=== PATIENT | female | born 1940 | race Caucasian/White ===

== ENCOUNTER 2017-07-12 14:10 | Emergency (ER) | payer MEDICARE, BC ==
[~2017-07-12] VITALS: Ht 160 cm; Wt 67.0 kg
[~2017-07-12 14:10] MED LIST: ALBU18HF2 IH; CALC-212 PO; CALC-793 PO; CYAN100T PO; ESTR1TAB19 PO; FLUT1DIS4 INH; IBUP200C74 PO; LORA-512 PO; OMEG1CAP46 PO; PRAS25CA7 PO; PRED5TAB PO; PROG100C6 PO; [UNRECOGNIZED DRUG - CODE] PO
[2017-07-12] MEDS ORDERED: methylPREDNISolone sod succ 125mg/2ml vial IV ONE (14:30)
[2017-07-12] MEDS ORDERED: ipratropium/albuterol 3ml nebule NEB ONE (14:30)
[2017-07-12 14:41] LABS: BASOPHILS % (AUTO) 0.3 % (0-1); EOSINOPHILS # (AUTO) 0.5 X10'3 (0-0.9); EOSINOPHILS % (AUTO) 3.7 % (0-6); HEMATOCRIT 45.9 % (35.0-45.0); HEMOGLOBIN 15.3 g/dl (12.0-16.0); LYMPHOCYTES # (AUTO) 2.5 X10'3 (1.1-4.8); LYMPHOCYTES % (AUTO) 18.1 % (21-51); MEAN CORPUSCULAR HEMOGLOBIN 31.9 PG (27.0-31.0); MEAN CORPUSCULAR HGB CONC 33.4 % (33.0-36.5); MEAN CORPUSCULAR VOLUME 95.7 FL (78-98); MEAN PLATELET VOLUME 7.9 FL (7.4-10.4); MONOCYTES % (AUTO) 7.5 % (2-12); NEUTROPHILS # (AUTO) 9.8 X10'3 (1.8-7.7); NEUTROPHILS % (AUTO) 70.4 % (42-75); PLATELET COUNT 260 X10'3 (140-440); RED CELL DISTRIBUTION WIDTH 12.6 % (11.5-14.5); WHITE BLOOD COUNT 13.9 X10'3 (4.5-11.0)
[2017-07-12 14:51] LABS: INR 0.9 INR; PARTIAL THROMBOPLASTIN TIME 26 SECONDS (22-32); PROTHROMBIN TIME 9.7 SECONDS (9.0-12.0)
[2017-07-12 14:54] LABS: ALANINE AMINOTRANSFERASE 24 U/L (12-78); ALBUMIN 3.9 G/DL (3.4-5.0); ALKALINE PHOSPHATASE 92 IU/L (46-116); ANION GAP 10 (8-16); ASPARTATE AMINO TRANSFERASE 16 U/L (10-37); BILIRUBIN,TOTAL 0.5 MG/DL (0.1-1.0); BLOOD UREA NITROGEN 15 MG/DL (7-18); BUN/CREATININE RATIO 17.4 (6.6-38.0); CALCIUM 9.2 MG/DL (8.5-10.1); CHLORIDE 102 MMOL/L (99-107); CREATININE 0.86 MG/DL (0.40-0.90); GLUCOSE 109 MG/DL (70-104); POTASSIUM 3.8 MMOL/L (3.5-5.1); SODIUM 139 MMOL/L (135-145); TOTAL CARBON DIOXIDE 27.3 MMOL/L (24-32); TOTAL PROTEIN 7.8 G/DL (6.4-8.2); eGFR 64 ML/MIN
[2017-07-12] MEDS ORDERED: AZIT-63 PO (15:16)
[2017-07-12 15:38] VITALS: BP 134/77
== END 2017-07-12 15:42 | disposition home or self-care (01) ==
LOC: ER 14:11
DX: J45.901 Unspecified asthma with (acute) exacerbation (principal); Z90.49 Acquired absence of other specified parts of digestive tract; Z90.710 Acquired absence of both cervix and uterus; Z88.2 Allergy status to sulfonamides; Z88.1 Allergy status to other antibiotic agents; Z79.899 Other long term (current) drug therapy
CPT/HCPCS: 36415; 71045; 80053; 85025; 85610; 85730; 93005; 94640; 94760; 96374; 99285; J2930; 96372

== ENCOUNTER 2017-10-30 03:26 | Inpatient (IN) | payer MEDICARE, BC ==
[~2017-10-30] VITALS: Ht 160 cm; Wt 68.0 kg
[2017-10-30] MEDS ORDERED: albuterol 2.5 MG/3 ML nebule CONTNEB PRN (03:30)
[2017-10-30] MEDS ORDERED: methylPREDNISolone sod succ 125mg/2ml vial IV ONE (03:30)
[2017-10-30] MEDS ORDERED: LORazepam 2 mg/ml vial IV ONE (03:30)
[2017-10-30 03:39] LABS: BASOPHILS % (AUTO) 0.4 % (0-1); EOSINOPHILS # (AUTO) 0.6 X10'3 (0-0.9); HEMATOCRIT 41.7 % (35.0-45.0); HEMOGLOBIN 14.6 g/dl (12.0-16.0); LYMPHOCYTES # (AUTO) 3.9 X10'3 (1.1-4.8); LYMPHOCYTES % (AUTO) 36.8 % (21-51); MEAN CORPUSCULAR HGB CONC 34.9 % (33.0-36.5); MEAN CORPUSCULAR VOLUME 94.5 FL (78-98); MONOCYTES # (AUTO) 0.7 X10'3 (0-0.9); MONOCYTES % (AUTO) 6.3 % (2-12); NEUTROPHILS # (AUTO) 5.4 X10'3 (1.8-7.7); NEUTROPHILS % (AUTO) 50.5 % (42-75); PLATELET COUNT 230 X10'3 (140-440); RED BLOOD COUNT 4.41 X10'6 (4.20-5.60); RED CELL DISTRIBUTION WIDTH 13.1 % (11.5-14.5); WHITE BLOOD COUNT 10.6 X10'3 (4.5-11.0)
[2017-10-30 03:46] LABS: ABG HCO3 23.8 mmol/L (22.0-26.0); ABG OXYGEN SATURATION 95.4 % (95-98); ABG PCO2 (T) 52.8 mmHg (32.0-45.0); ABG PH (T) 7.269 (7.350-7.450); ABG PO2 (T) 87.4 mmHg (83-108); ALLEN'S TEST Positive; FCOHb 0.5 % (0.5-1.5); FMetHb 0.1 % (0.3-1.12); FO2Hb 94.8 % (94-100); PATIENT TEMPERATURE 36.5
[2017-10-30] MEDS ORDERED: azithromycin/NS 500mg/250ml 250 ML IV ONE (03:55)
[2017-10-30 04:00] LABS: ALANINE AMINOTRANSFERASE 23 U/L (12-78); ALBUMIN 3.4 G/DL (3.4-5.0); ALKALINE PHOSPHATASE 73 IU/L (46-116); ANION GAP 8 (8-16); ASPARTATE AMINO TRANSFERASE 26 U/L (10-37); BILIRUBIN,TOTAL 0.4 MG/DL (0.1-1.0); BLOOD UREA NITROGEN 14 MG/DL (7-18); BUN/CREATININE RATIO 15.6 (6.6-38.0); CALCIUM 8.5 MG/DL (8.5-10.1); CHLORIDE 107 MMOL/L (99-107); GLUCOSE 165 MG/DL (70-104); POTASSIUM 3.9 MMOL/L (3.5-5.1); SODIUM 142 MMOL/L (135-145); TOTAL CARBON DIOXIDE 27.1 MMOL/L (24-32); TOTAL PROTEIN 6.9 G/DL (6.4-8.2); eGFR 61 ML/MIN
[2017-10-30] MEDS ORDERED: acetaminophen 325mg tablet PO PRN ×2 (05:05)
[2017-10-30] MEDS ORDERED: magnesium hydroxide 30ml (MOM) UD suspension PO PRN (05:05)
[2017-10-30] MEDS ORDERED: ondansetron/PF 4mg/2ml inj IV PRN (05:05)
[2017-10-30] MEDS ORDERED: mag hydrox/Alum hydrox/simeth 30ml oral suspension PO PRN (05:05)
[2017-10-30] MEDS ORDERED: ipratropium/albuterol 3ml nebule NEB PRN (05:10)
[2017-10-30 07:20] VITALS: BP 136/55
[2017-10-30] MEDS ORDERED: enoxaparin 40mg/0.4ml syringe SUBCUT SCH (08:00)
[2017-10-30] MEDS ORDERED: methylPREDNISolone sod succ 125mg/2ml vial IV SCH (08:00)
[2017-10-30 09:00] VITALS: BP 133/58
[2017-10-30] MEDS ORDERED: ASPI81TA52 PO (10:21)
[2017-10-30] MEDS ORDERED: BUDE0.5A11 IH (10:26)
[2017-10-30] MEDS ORDERED: FLUT16SP2 BOTHNARES (10:26)
[2017-10-30] MEDS ORDERED: AZEL137S4 BOTHNARES (10:27)
[2017-10-30] MEDS ORDERED: CETI10CA PO (10:27)
[2017-10-30 11:00] VITALS: BP 131/53
[2017-10-30 11:35] LABS: ABG BASE EXCESS -1.3 mmol/L (-2.0-3.0); ABG HCO3 23.1 mmol/L (22.0-26.0); ABG OXYGEN SATURATION 95.3 % (95-98); ABG PH (T) 7.402 (7.350-7.450); ABG PO2 (T) 73.7 mmHg (83-108); ALLEN'S TEST Positive; FCOHb 0.3 % (0.5-1.5); FMetHb 0.2 % (0.3-1.12); FO2Hb 94.8 % (94-100); TOTAL HEMOGLOBIN 14.5 G/dl (12.0-16.0)
[2017-10-30 13:00] VITALS: BP 129/52
[2017-10-30] MEDS ORDERED: FAMO-128 PO (13:04)
[2017-10-30] MEDS ORDERED: PRED10TA23 PO (13:04)
[2017-10-31] MEDS ORDERED: azithromycin 250mg tablet PO SCH (08:00)
== END 2017-10-30 14:22 | disposition home or self-care (01) | DRG 189 ==
LOC: ER 03:27 → ED HOLD 05:05 → PCU 3S 07:17
PROVIDERS: ADMIT Internal Medicine; ATTEND Internal Medicine
PROC: 5A09357 Assistance with Respiratory Ventilation, Less than 24 Consecutive Hours, Continuous Positive Airway Pressure (ICD-10-PCS; principal; 2017-10-30)
DX: J96.01 Acute respiratory failure with hypoxia (principal); E87.2 Acidosis; J45.901 Unspecified asthma with (acute) exacerbation; J96.02 Acute respiratory failure with hypercapnia; R73.9 Hyperglycemia, unspecified; J44.9 Chronic obstructive pulmonary disease, unspecified; I10 Essential (primary) hypertension; Z77.098 Contact with and (suspected) exposure to other hazardous, chiefly nonmedicinal, chemicals; Z90.710 Acquired absence of both cervix and uterus; Z90.49 Acquired absence of other specified parts of digestive tract; Z79.899 Other long term (current) drug therapy; Z88.2 Allergy status to sulfonamides; Z88.1 Allergy status to other antibiotic agents; Z82.5 Family history of asthma and other chronic lower respiratory diseases; Z82.49 Family history of ischemic heart disease and other diseases of the circulatory system
CPT/HCPCS: 36415; 36600; 71045; 80053; 82803; 83605; 83735; 83880; 84484; 85018; 85025; 87040; 87070; 93005; 94660; 94760; J0456; J1650; J2060; J2930

== ENCOUNTER 2018-06-15 06:12 | Inpatient (IN) | payer MEDICARE, BC ==
[~2018-06-15] VITALS: Ht 160 cm; Wt 63.0 kg
[~2018-06-15 06:12] MED LIST changes: +ASPI81TA52 PO; +AZEL137S4 BOTHNARES; +BUDE0.5A11 IH; -CALC-212 PO; +CETI10CA PO; +FAMO-128 PO; +FLUT16SP2 BOTHNARES; -IBUP200C74 PO; -LORA-512 PO; -PRAS25CA7 PO; -PRED5TAB PO
[2018-06-15 06:43] LABS: BASOPHILS # (AUTO) 0.1 X10'3 (0-0.2); BASOPHILS % (AUTO) 0.4 % (0-1); EOSINOPHILS # (AUTO) 0.4 X10'3 (0-0.9); EOSINOPHILS % (AUTO) 2.6 % (0-6); HEMATOCRIT 44.9 % (35.0-45.0); HEMOGLOBIN 15.1 g/dl (12.0-16.0); LYMPHOCYTES # (AUTO) 1.6 X10'3 (1.1-4.8); LYMPHOCYTES % (AUTO) 10.6 % (21-51); MEAN CORPUSCULAR HEMOGLOBIN 32.3 PG (27.0-31.0); MEAN CORPUSCULAR HGB CONC 33.6 % (33.0-36.5); MEAN PLATELET VOLUME 8.2 FL (7.4-10.4); MONOCYTES # (AUTO) 0.6 X10'3 (0-0.9); MONOCYTES % (AUTO) 4.2 % (2-12); NEUTROPHILS # (AUTO) 12.1 X10'3 (1.8-7.7); NEUTROPHILS % (AUTO) 82.2 % (42-75); PLATELET COUNT 294 X10'3 (140-440); RED BLOOD COUNT 4.68 X10'6 (4.20-5.60); RED CELL DISTRIBUTION WIDTH 12.4 % (11.5-14.5); WHITE BLOOD COUNT 14.7 X10'3 (4.5-11.0)
[2018-06-15] MEDS ORDERED: ipratropium/albuterol 3ml nebule NEB PRN (06:45)
[2018-06-15 06:59] LABS: PARTIAL THROMBOPLASTIN TIME 27 SECONDS (22-32); PROTHROMBIN TIME 9.9 SECONDS (9.0-12.0)
[2018-06-15 07:02] LABS: ALANINE AMINOTRANSFERASE 44 U/L (12-78); ALBUMIN 3.5 G/DL (3.4-5.0); ALKALINE PHOSPHATASE 79 IU/L (46-116); ANION GAP 9 (8-16); ASPARTATE AMINO TRANSFERASE 29 U/L (10-37); BILIRUBIN,TOTAL 0.3 MG/DL (0.1-1.0); BLOOD UREA NITROGEN 11 MG/DL (7-18); BUN/CREATININE RATIO 12.5 (6.6-38.0); CALCIUM 8.4 MG/DL (8.5-10.1); CHLORIDE 103 MMOL/L (99-107); CREATININE 0.88 MG/DL (0.40-0.90); GLUCOSE 174 MG/DL (70-104); POTASSIUM 3.5 MMOL/L (3.5-5.1); SODIUM 141 MMOL/L (135-145); TOTAL CARBON DIOXIDE 29.2 MMOL/L (24-32); eGFR 62 ML/MIN
[2018-06-15] MEDS ORDERED: ondansetron/PF 4mg/2ml inj IV ONE (07:35)
[2018-06-15] MEDS ORDERED: albuterol 2.5 MG/3 ML nebule NEB ONE (07:45)
[2018-06-15] MEDS ORDERED: methylPREDNISolone sod succ 125mg/2ml vial IV ONE (07:45)
[2018-06-15] MEDS ORDERED: albuterol 2.5 MG/3 ML nebule ONE (07:57)
[2018-06-15] MEDS ORDERED: potassium Cl 40MEQ/NS 500ml 500 ML IV PRN ×2 (08:55)
[2018-06-15] MEDS ORDERED: acetaminophen 325mg tablet PO PRN (08:55)
[2018-06-15] MEDS ORDERED: magnesium Cl slow-release 64mg tablet PO PRN (08:55)
[2018-06-15] MEDS ORDERED: magnesium 4gm in 100ml NS 100 ML IV PRN (08:55)
[2018-06-15] MEDS ORDERED: potassium Cl 20 mEq SR tablet PO PRN ×2 (08:55)
[2018-06-15] MEDS ORDERED: magnesium hydroxide 30ml (MOM) UD suspension PO PRN (08:55)
[2018-06-15] MEDS ORDERED: ondansetron/PF 4mg/2ml inj IV PRN (08:55)
[2018-06-15] MEDS ORDERED: mag hydrox/Alum hydrox/simeth 30ml oral suspension PO PRN (08:55)
[2018-06-15] MEDS ORDERED: albuterol 2.5 MG/3 ML nebule NEB PRN (09:15)
[2018-06-15 09:32] LABS: CLARITY,URINE CLEAR (Clear); COLOR,URINE YELLOW (Yellow); GLUCOSE, URINE NEGATIVE (Neg); KETONES,URINE 15 mg/dl (Neg); LEUKOCYTE ESTERASE ,URINE NEGATIVE (Neg); NITRITES, URINE NEGATIVE (Neg); OCCULT BLOOD,URINE MODERATE (Neg); PH,URINE 5.5 (4.8-8.0); PROTEIN,URINE TRACE mg/dl (Neg); UROBILINOGEN,URINE 0.2 E.U/dL (0.2-1.0)
[2018-06-15 09:38] LABS: BACTERIA,URINE FEW /HPF (Neg); MUCUS STRANDS MODERATE /LPF (Neg); RBC,URINE 0-2 /HPF (0-2); SQUAMOUS EPITHELIAL CELL,UR MANY /LPF (FEW); WBC,URINE 0-4 /HPF (0-4)
[2018-06-15 09:50] LABS: UA COLLECTION TYPE NON-SPECIFIED
[2018-06-15 10:01] VITALS: BP 112/47
[2018-06-15 11:00] VITALS: BP 110/53
[2018-06-15] MEDS: ipratropium/albuterol 3ml nebule NEB SCH ×4 (11:24→23:00)
[2018-06-15 15:00] VITALS: BP 108/48
[2018-06-15] MEDS: normal saline 1000ml 1,000 ML IV SCH (15:00)
[2018-06-15 18:00] VITALS: BP 113/46
[2018-06-15] MEDS: methylPREDNISolone sod succ 125mg/2ml vial IV SCH (18:04)
[2018-06-15] MEDS: budesonide 0.5mg/2ml UD nebule IH SCH (19:03)
[2018-06-15] MEDS: heparin, porcine 5000 units/ml vial SQ SCH (19:28)
[2018-06-15 22:00] VITALS: BP 108/55
[2018-06-16] MEDS: methylPREDNISolone sod succ 125mg/2ml vial IV SCH ×2 (00:25→09:38)
[2018-06-16 02:00] VITALS: BP 102/50
[2018-06-16] MEDS: ipratropium/albuterol 3ml nebule NEB SCH ×3 (03:00→09:02)
[2018-06-16] MEDS: normal saline 1000ml 1,000 ML IV SCH (04:42)
[2018-06-16 06:44] LABS: BASOPHILS % (AUTO) 0.2 % (0-1); EOSINOPHILS # (AUTO) 0.2 X10'3 (0-0.9); EOSINOPHILS % (AUTO) 1.2 % (0-6); HEMATOCRIT 40.1 % (35.0-45.0); HEMOGLOBIN 13.3 g/dl (12.0-16.0); LYMPHOCYTES # (AUTO) 0.8 X10'3 (1.1-4.8); LYMPHOCYTES % (AUTO) 5.6 % (21-51); MEAN CORPUSCULAR HEMOGLOBIN 32.3 PG (27.0-31.0); MEAN CORPUSCULAR HGB CONC 33.3 % (33.0-36.5); MEAN CORPUSCULAR VOLUME 97.1 FL (78-98); MEAN PLATELET VOLUME 8.8 FL (7.4-10.4); MONOCYTES # (AUTO) 0.3 X10'3 (0-0.9); MONOCYTES % (AUTO) 1.9 % (2-12); NEUTROPHILS # (AUTO) 13.3 X10'3 (1.8-7.7); NEUTROPHILS % (AUTO) 91.1 % (42-75); PLATELET COUNT 277 X10'3 (140-440); RED BLOOD COUNT 4.13 X10'6 (4.20-5.60); RED CELL DISTRIBUTION WIDTH 12.7 % (11.5-14.5); WHITE BLOOD COUNT 14.6 X10'3 (4.5-11.0)
[2018-06-16 07:00] VITALS: BP 106/60
[2018-06-16] MEDS: budesonide 0.5mg/2ml UD nebule IH SCH (07:04)
[2018-06-16 07:05] LABS: ALANINE AMINOTRANSFERASE 36 U/L (12-78); ALBUMIN/GLOBULIN RATIO 0.9 (1.1-1.5); ALKALINE PHOSPHATASE 62 IU/L (46-116); ANION GAP 9 (8-16); ASPARTATE AMINO TRANSFERASE 22 U/L (10-37); BILIRUBIN,TOTAL 0.2 MG/DL (0.1-1.0); BLOOD UREA NITROGEN 13 MG/DL (7-18); BUN/CREATININE RATIO 16.9 (6.6-38.0); CALCIUM 7.9 MG/DL (8.5-10.1); CHLORIDE 106 MMOL/L (99-107); CREATININE 0.77 MG/DL (0.40-0.90); GLUCOSE 151 MG/DL (70-104); MAGNESIUM 1.7 MG/DL (1.5-2.4); POTASSIUM 3.7 MMOL/L (3.5-5.1); SODIUM 141 MMOL/L (135-145); TOTAL CARBON DIOXIDE 25.6 MMOL/L (24-32); TOTAL PROTEIN 6.3 G/DL (6.4-8.2); eGFR 73 ML/MIN
[2018-06-16] MEDS ORDERED: azelastine Nasal Spray bottle NS SCH (08:00)
[2018-06-16] MEDS ORDERED: K and/or MAG REPLACEMENT MC SCH (08:00)
[2018-06-16] MEDS: heparin, porcine 5000 units/ml vial SQ SCH (09:39)
[2018-06-16 12:00] VITALS: BP 107/58
[2018-06-16] MEDS ORDERED: PRED10TA23 PO (12:07)
== END 2018-06-16 14:30 | disposition home or self-care (01) | DRG 189 ==
LOC: ER 06:15 → ED HOLD 08:51 → PCU 3S 09:54
PROVIDERS: ADMIT Internal Medicine; ATTEND Internal Medicine
DX: J96.01 Acute respiratory failure with hypoxia (principal); J44.1 Chronic obstructive pulmonary disease with (acute) exacerbation; E86.0 Dehydration; Z77.098 Contact with and (suspected) exposure to other hazardous, chiefly nonmedicinal, chemicals; Z90.49 Acquired absence of other specified parts of digestive tract; Z90.710 Acquired absence of both cervix and uterus; Z88.1 Allergy status to other antibiotic agents; Z88.2 Allergy status to sulfonamides; Z79.899 Other long term (current) drug therapy; Z82.49 Family history of ischemic heart disease and other diseases of the circulatory system; Z82.5 Family history of asthma and other chronic lower respiratory diseases
CPT/HCPCS: 36415; 71045; 80053; 81001; 82948; 83605; 83735; 83880; 84145; 85025; 85610; 85730; 87040; 87070; 87502; 87503; 93005; 93306; 94640; 94760; 96374; 96375; 99285; G0378; J1644; J2405; J2930; J7030; J7626

== ENCOUNTER 2019-02-14 10:13 | Observation (INO) | payer MEDICARE, BC ==
[~2019-02-14] VITALS: Ht 160 cm; Wt 65.7 kg
[~2019-02-14 10:13] MED LIST changes: -ASPI81TA52 PO; -BUDE0.5A11 IH; -CETI10CA PO; -CYAN100T PO; +CYAN100T46 PO; -FAMO-128 PO; +PROG100C11 PO; -PROG100C6 PO
[2019-02-14] MEDS: nitroGLYCERIN 0.4mg SUBLingual tab SL PRN ×3 (10:44→11:08)
--- NOTE | 2019-02-14 10:55 | NUR ---
FIRST NTG DOSE TOOK CP FROM 6 TO 4. PROVIDER BACK IN ROOM TO DISCUSS ADMISSION. BP FROM 132/100 TO 107/70 AFTER FIRST NTG.
[2019-02-14 10:57] LABS: BASOPHILS # (AUTO) 0.1 X10'3 (0-0.2); BASOPHILS % (AUTO) 0.6 % (0-1); EOSINOPHILS # (AUTO) 0.2 X10'3 (0-0.9); EOSINOPHILS % (AUTO) 2.8 % (0-6); HEMATOCRIT 41.5 % (35.0-45.0); HEMOGLOBIN 14.3 g/dl (12.0-16.0); LYMPHOCYTES # (AUTO) 1.6 X10'3 (1.1-4.8); LYMPHOCYTES % (AUTO) 19.9 % (21-51); MEAN CORPUSCULAR HGB CONC 34.4 g/dL (33.0-36.5); MEAN CORPUSCULAR VOLUME 95.8 FL (78-98); MONOCYTES # (AUTO) 0.8 X10'3 (0-0.9); MONOCYTES % (AUTO) 9.6 % (2-12); NEUTROPHILS # (AUTO) 5.4 X10'3 (1.8-7.7); NEUTROPHILS % (AUTO) 67.1 % (42-75); PLATELET COUNT 239 X10'3 (140-440); RED BLOOD COUNT 4.33 X10'6 (4.20-5.60); RED CELL DISTRIBUTION WIDTH 13.5 % (11.5-14.5)
[2019-02-14] MEDS ORDERED: acetaminophen 325mg tablet PO ONE ×2 (11:00→11:05)
--- NOTE | 2019-02-14 11:05 | NUR ---
NO CHANGE IN PAIN AFTER SECOND NTG, BP 106/65, 109/55
--- NOTE | 2019-02-14 11:09 | NUR ---
3RD NTG DOSE GIVEN
[2019-02-14 11:10] LABS: D-DIMER 0.72 MG/L FEU (0-0.50)
[2019-02-14] MEDS ORDERED: ipratropium/albuterol 3ml nebule NEB ONE (11:10)
[2019-02-14 11:11] LABS: ALANINE AMINOTRANSFERASE 20 U/L (12-78); ALBUMIN 3.4 G/DL (3.4-5.0); ALKALINE PHOSPHATASE 58 IU/L (46-116); ANION GAP 10 (8-16); ASPARTATE AMINO TRANSFERASE 14 U/L (10-37); BILIRUBIN,TOTAL 0.6 MG/DL (0.1-1.0); BLOOD UREA NITROGEN 20 MG/DL (7-18); CHLORIDE 103 MMOL/L (99-107); CREATININE 0.91 MG/DL (0.40-0.90); GLUCOSE 108 MG/DL (70-104); POTASSIUM 3.9 MMOL/L (3.5-5.1); SODIUM 141 MMOL/L (135-145); TOTAL CARBON DIOXIDE 28.4 MMOL/L (24-32); TOTAL PROTEIN 6.8 G/DL (6.4-8.2); eGFR 60 ML/MIN
--- NOTE | 2019-02-14 11:12 | NUR ---
CHEST PRESSURE GONE AFTER 3RD NTG, PER PT. PT STILL SAYS SHE HAS SOME SLIGHT PAIN IN HER BACK. BP 99/52 AFTER 3RD DOSE
[2019-02-14] MEDS ORDERED: TIOT4MIS5 INH (11:24)
[2019-02-14] MEDS ORDERED: CALC-854 PO (11:24)
[2019-02-14] MEDS ORDERED: VITA100D6 PO (11:25)
[2019-02-14] MEDS ORDERED: LACT1CAP65 PO (11:25)
[2019-02-14] MEDS ORDERED: iohexol 350MG/ML 100ml bottle IV ONE (11:29)
[2019-02-14] MEDS ORDERED: ondansetron/PF 4mg/2ml inj IV PRN (12:35)
[2019-02-14] MEDS ORDERED: acetaminophen 325mg tablet PO PRN (12:35)
[2019-02-14] MEDS ORDERED: magnesium Cl slow-release 64mg tablet PO PRN (12:35)
[2019-02-14] MEDS ORDERED: docusate sod 100mg capsule PO PRN (12:35)
[2019-02-14] MEDS ORDERED: magnesium 4gm in 100ml NS 100 ML IV PRN (12:35)
[2019-02-14] MEDS ORDERED: potassium CL 10mEq/100ml bag 100 ML IV PRN ×2 (12:35)
[2019-02-14] MEDS ORDERED: albuterol 1.25 MG/3 ML (1/2 strength) nebule NEB PRN (12:35)
[2019-02-14] MEDS ORDERED: mag hydrox/Alum hydrox/simeth 30ml oral suspension PO PRN (12:35)
[2019-02-14] MEDS ORDERED: magnesium 2GM in 50ml NS 50 ML IV PRN (12:35)
[2019-02-14] MEDS ORDERED: morphine 2 MG/ML inj. syringe IV PRN ×2 (12:35)
[2019-02-14] MEDS ORDERED: potassium Cl 20 mEq SR tablet PO PRN ×2 (12:35)
[2019-02-14] MEDS ORDERED: VITA400C65 PO (12:43)
[2019-02-14] MEDS: cyanocobalamin 500mcg tablet PO SCH (12:45)
[2019-02-14] MEDS ORDERED: albuterol 2.5 MG/3 ML nebule NEB PRN (12:50)
[2019-02-14 13:30] VITALS: BP 127/43
[2019-02-14 14:00] VITALS: BP 141/64
[2019-02-14 15:00] VITALS: BP 129/53
--- NOTE | 2019-02-14 18:11 | NUR ---
Problems reprioritized. Patient report given, questions answered & plan of care reviewed with Lucio ANTHONY.
[2019-02-14 19:00] VITALS: BP 133/47
[2019-02-14] MEDS: azelastine Nasal Spray bottle NS SCH (19:37)
[2019-02-14] MEDS ORDERED: PROGESTERONE 200 MG PO SCH (21:00)
[2019-02-14 22:00] VITALS: BP 133/47
[2019-02-15] VITALS (9 sets, daily range): BP systolic 125–156; BP diastolic 53–71
[2019-02-15 05:38] LABS: ALANINE AMINOTRANSFERASE 19 U/L (12-78); ALBUMIN 3.2 G/DL (3.4-5.0); ALKALINE PHOSPHATASE 52 IU/L (46-116); ANION GAP 8 (8-16); ASPARTATE AMINO TRANSFERASE 12 U/L (10-37); BILIRUBIN,TOTAL 0.6 MG/DL (0.1-1.0); BLOOD UREA NITROGEN 22 MG/DL (7-18); BUN/CREATININE RATIO 28.2 (6.6-38.0); CALCIUM 8.7 MG/DL (8.5-10.1); CHLORIDE 106 MMOL/L (99-107); CHOL/HDL RATIO 2.5 (0.00-4.99); CHOLESTEROL 193 MG/DL (0-200); CREATININE 0.78 MG/DL (0.40-0.90); GLUCOSE 90 MG/DL (70-104); HDL CHOLESTEROL 76 MG/DL (35-60); LDL CHOLESTEROL 103 MG/DL (50-100); MAGNESIUM 1.9 MG/DL (1.5-2.4); POTASSIUM 4.1 MMOL/L (3.5-5.1); SODIUM 141 MMOL/L (135-145); TOTAL CARBON DIOXIDE 26.6 MMOL/L (24-32); TOTAL PROTEIN 6.4 G/DL (6.4-8.2); TRIGLYCERIDES 83 MG/DL (20-135); eGFR 71 ML/MIN
--- NOTE | 2019-02-15 06:05 | NUR ---
Patient in room MED 313. I have received report from GINNY and had the opportunity to ask questions and assume patient care.
[2019-02-15 07:13] LABS: BASOPHILS # (AUTO) 0.1 X10'3 (0-0.2); BASOPHILS % (AUTO) 0.8 % (0-1); EOSINOPHILS # (AUTO) 0.8 X10'3 (0-0.9); EOSINOPHILS % (AUTO) 10.6 % (0-6); HEMATOCRIT 40.7 % (35.0-45.0); HEMOGLOBIN 13.7 g/dl (12.0-16.0); LYMPHOCYTES % (AUTO) 27.2 % (21-51); MEAN CORPUSCULAR HEMOGLOBIN 32.9 PG (27.0-31.0); MEAN CORPUSCULAR HGB CONC 33.7 g/dL (33.0-36.5); MEAN CORPUSCULAR VOLUME 97.4 FL (78-98); MONOCYTES # (AUTO) 0.8 X10'3 (0-0.9); MONOCYTES % (AUTO) 11.3 % (2-12); NEUTROPHILS # (AUTO) 3.7 X10'3 (1.8-7.7); NEUTROPHILS % (AUTO) 50.1 % (42-75); PLATELET COUNT 215 X10'3 (140-440); RED BLOOD COUNT 4.18 X10'6 (4.20-5.60); RED CELL DISTRIBUTION WIDTH 13.7 % (11.5-14.5); WHITE BLOOD COUNT 7.4 X10'3 (4.5-11.0)
[2019-02-15] MEDS ORDERED: regadenoson 0.4mg/5ml syringe IV ONE (07:30)
[2019-02-15] MEDS ORDERED: nitroGLYCERIN 0.4mg SUBLingual tab SL PRN (07:30)
[2019-02-15] MEDS ORDERED: metoprolol tartrate 1mg/ml inj IV PRN (07:30)
[2019-02-15] MEDS ORDERED: aminophylline 250mg/10ml inj. IV PRN (07:30)
[2019-02-15] MEDS: azelastine Nasal Spray bottle NS SCH (08:00)
[2019-02-15] MEDS ORDERED: enoxaparin 40mg/0.4ml syringe SQ SCH (08:00)
[2019-02-15] MEDS ORDERED: estradiol 1mg tablet PO SCH (08:00)
[2019-02-15] MEDS ORDERED: OMEGA-3/DHA/EPA/FISH OIL 1 EACH CAPSULE.DR PO SCH (08:00)
[2019-02-15] MEDS ORDERED: fluticasone nasal spray 16GM bottle NS SCH (08:00)
[2019-02-15] MEDS ORDERED: K and/or MAG REPLACEMENT MC SCH (08:00)
--- NOTE | 2019-02-15 11:00 | NUR ---
DR TURPIN SPOKE WITH PATIENT AND WILL REVIEW STRESS TEST RESULTS. PT PREFERS NOT TO CHANGE MEDS AT THIS TIME.
[2019-02-15] MEDS: cyanocobalamin 500mcg tablet PO SCH (11:08)
[2019-02-15] MEDS ORDERED: NITR0.4T51 SL (11:35)
--- NOTE | 2019-02-15 12:55 | NUR ---
DISCHARGE PACKET GIVEN TO PATIENT, NEW MEDICATION INFORMATION GONE OVER WITH PT, PATIENT VERBALIZED UNDERSTANDING. IV D/C, CATHETER INTACT, CLEAN GAUZE AND PRESSURE APPLIED, NO BLEEDING. PT DAUGHTER HERE TO TAKE HER HOME.
== END 2019-02-15 13:00 | disposition home or self-care (01) ==
LOC: ER 10:15 → MED 3N 13:53
PROVIDERS: ADMIT Family Medicine; ATTEND Family Medicine
DX: R07.9 Chest pain, unspecified (principal); J45.909 Unspecified asthma, uncomplicated; J44.9 Chronic obstructive pulmonary disease, unspecified; I25.119 Atherosclerotic heart disease of native coronary artery with unspecified angina pectoris; I11.0 Hypertensive heart disease with heart failure; I50.9 Heart failure, unspecified; E10.51 Type 1 diabetes mellitus with diabetic peripheral angiopathy without gangrene; I25.2 Old myocardial infarction; G30.9 Alzheimer's disease, unspecified; E78.00 Pure hypercholesterolemia, unspecified; Z79.4 Long term (current) use of insulin; Z86.73 Personal history of transient ischemic attack (TIA), and cerebral infarction without residual deficits; Z90.710 Acquired absence of both cervix and uterus
CPT/HCPCS: 36415; 71045; 71275; 78452; 80053; 80061; 83735; 83880; 84484; 85025; 85379; 85610; 87081; 93005; 93017; 93306; 94640; 94760; 96372; 99284; A9500; G0378; J2785; Q9967; J1650

== ENCOUNTER 2019-05-23 01:08 | Inpatient (IN) | payer MEDICARE, BC ==
[~2019-05-23] VITALS: Ht 160 cm; Wt 62.7 kg
[~2019-05-23 01:08] MED LIST changes: -CALC-793 PO; +CALC-854 PO; +LACT1CAP65 PO; +NITR0.4T51 SL; +TIOT4MIS5 INH; +VITA-134 PO; -[UNRECOGNIZED DRUG - CODE] PO
[2019-05-23] MEDS ORDERED: ipratropium/albuterol 3ml nebule NEB ONE (01:35)
[2019-05-23] MEDS ORDERED: predniSONE 20 mg tablet PO ONE (01:35)
[2019-05-23] MEDS ORDERED: acetaminophen 325mg tablet PO PRN (01:45)
[2019-05-23] MEDS ORDERED: magnesium hydroxide 30ml (MOM) UD suspension PO PRN (01:45)
[2019-05-23] MEDS ORDERED: HYDROcodone/acetaminophen 5mg/325mg tablet PO PRN (01:45)
[2019-05-23] MEDS ORDERED: HYDROcodone/acetaminophen 10/325mg tab PO PRN (01:45)
[2019-05-23] MEDS ORDERED: albuterol 2.5 MG/3 ML nebule NEB PRN (01:45)
--- NOTE | 2019-05-23 01:59 | NUR ---
LABS DRAWN, PREDNISONE GIVEN AND SVN COMPLETED. HOSPITALIST HAS SEEN PT AND ADMISSION ORDERS WRITTEN. PTS DAUGHTER AT BEDSIDE.
[2019-05-23 02:02] LABS: BASOPHILS % (AUTO) 0.4 % (0-1); EOSINOPHILS # (AUTO) 0.6 X10'3 (0-0.9); EOSINOPHILS % (AUTO) 6.3 % (0-6); HEMOGLOBIN 14.7 g/dl (12.0-16.0); LYMPHOCYTES # (AUTO) 2.1 X10'3 (1.1-4.8); LYMPHOCYTES % (AUTO) 22.4 % (21-51); MEAN CORPUSCULAR HEMOGLOBIN 33.2 PG (27.0-31.0); MEAN CORPUSCULAR HGB CONC 34.9 g/dL (33.0-36.5); MEAN CORPUSCULAR VOLUME 95.1 FL (78-98); MEAN PLATELET VOLUME 8.1 FL (7.4-10.4); MONOCYTES # (AUTO) 0.9 X10'3 (0-0.9); MONOCYTES % (AUTO) 9.4 % (2-12); NEUTROPHILS # (AUTO) 5.7 X10'3 (1.8-7.7); NEUTROPHILS % (AUTO) 61.5 % (42-75); PLATELET COUNT 244 X10'3 (140-440); RED BLOOD COUNT 4.41 X10'6 (4.20-5.60); RED CELL DISTRIBUTION WIDTH 12.3 % (11.5-14.5); WHITE BLOOD COUNT 9.2 X10'3 (4.5-11.0)
[2019-05-23 02:06] LABS: PARTIAL THROMBOPLASTIN TIME 28 SECONDS (22-32)
[2019-05-23 02:10] LABS: ALANINE AMINOTRANSFERASE 17 U/L (12-78); ALBUMIN 3.5 G/DL (3.4-5.0); ALBUMIN/GLOBULIN RATIO 0.9 (1.1-1.5); ALKALINE PHOSPHATASE 64 IU/L (46-116); ANION GAP 7 (8-16); ASPARTATE AMINO TRANSFERASE 17 U/L (10-37); BILIRUBIN,TOTAL 0.4 MG/DL (0.1-1.0); BLOOD UREA NITROGEN 17 MG/DL (7-18); BUN/CREATININE RATIO 21.3 (6.6-38.0); CALCIUM 8.9 MG/DL (8.5-10.1); CHLORIDE 105 MMOL/L (99-107); GLUCOSE 112 MG/DL (70-104); POTASSIUM 3.9 MMOL/L (3.5-5.1); SODIUM 139 MMOL/L (135-145); TOTAL CARBON DIOXIDE 27.5 MMOL/L (24-32); TOTAL PROTEIN 7.2 G/DL (6.4-8.2); eGFR 69 ML/MIN
[2019-05-23] MEDS ORDERED: iohexol 350MG/ML 100ml bottle IV ONE (02:13)
--- NOTE | 2019-05-23 02:56 | NUR ---
RETURNED FROM CT, AWAITING RESULT. AWAITING IPA. [facility].
[2019-05-23] MEDS: ipratropium 0.5 MG/2.5ML nebule IH SCH ×6 (03:00→23:00)
[2019-05-23] MEDS ORDERED: levoFLOXACIN-Levaquin 750MG/D5 150 ML IV ONE (03:50)
--- NOTE | 2019-05-23 05:11 | NUR ---
Patient in room ED 11. I have received report from GABRIELLE Zheng and had the opportunity to ask questions and assume patient care.
[2019-05-23] MEDS: acetaminophen 325mg tablet PO PRN (05:51)
[2019-05-23 05:55] VITALS: BP 137/77
--- NOTE | 2019-05-23 05:58 | NUR ---
Patient arrived to unit RN transporting patient via gurney. Patient walked to her bed without any problems. She is not complaining o SOB at this time, her lungs are clear anterior and posterior.VSS are charted and within normal limits. 2 RN skin check was done. Bowel sound normal in all four quadrants, last BM was 05/22/19. Patient is ALOx4 Addendum: 05/23/19 at 0626 by Aditya Lui RN Tylenol given for a headache
--- NOTE | 2019-05-23 06:26 | NUR ---
Problems reprioritized. Patient report given, questions answered & plan of care reviewed with GABRIELLE Bonds.
--- NOTE | 2019-05-23 07:12 | NUR ---
Patient in room MYKE 354. I have received report from [facility] and had the opportunity to ask questions and assume patient care.
[2019-05-23 08:00] VITALS: BP 133/57
[2019-05-23] MEDS ORDERED: predniSONE 20 mg tablet PO SCH (08:00)
[2019-05-23] MEDS: enoxaparin 40mg/0.4ml syringe SUBCUT SCH (08:00)
[2019-05-23] MEDS: ondansetron/PF 4mg/2ml inj IV PRN ×2 (08:04→15:51)
[2019-05-23] MEDS ORDERED: pneumococcal 23-VAL P-sac vacc 25 mcg/0.5ml vial IMVAC ONE (11:30)
[2019-05-23 12:00] VITALS: BP 133/68
--- NOTE | 2019-05-23 13:01 | NUR ---
I have reviewed and agree with all medications administered and interventions performed by [employer] Student Inocencio Turner.
[2019-05-23] MEDS: methylPREDNISolone sod succ 125mg/2ml vial IV SCH ×2 (14:00→19:52)
[2019-05-23] MEDS: mag hydrox/Alum hydrox/simeth 30ml oral suspension PO PRN (15:51)
[2019-05-23 18:00] VITALS: BP 135/55
--- NOTE | 2019-05-23 18:36 | NUR ---
Patient in room MYKE 354. I have received report from Cammie ANTHONY and had the opportunity to ask questions and assume patient care.
--- NOTE | 2019-05-23 18:56 | NUR ---
Problems reprioritized. Patient report given, questions answered & plan of care reviewed with Prudence RN.
[2019-05-23] MEDS ORDERED: temazepam 15mg capsule PO PRN (21:00)
[2019-05-24] MEDS: acetaminophen 325mg tablet PO PRN (00:27)
[2019-05-24 00:30] VITALS: BP 120/53
[2019-05-24] MEDS: methylPREDNISolone sod succ 125mg/2ml vial IV SCH ×2 (02:05→07:54)
[2019-05-24] MEDS: ipratropium 0.5 MG/2.5ML nebule IH SCH ×6 (02:41→23:24)
[2019-05-24 06:00] VITALS: BP 110/56
[2019-05-24 06:18] LABS: BASOPHILS % (AUTO) 0.1 % (0-1); EOSINOPHILS % (AUTO) 0.1 % (0-6); HEMATOCRIT 40.2 % (35.0-45.0); HEMOGLOBIN 13.9 g/dl (12.0-16.0); LYMPHOCYTES # (AUTO) 0.6 X10'3 (1.1-4.8); LYMPHOCYTES % (AUTO) 6.6 % (21-51); MEAN CORPUSCULAR HEMOGLOBIN 33.3 PG (27.0-31.0); MEAN CORPUSCULAR HGB CONC 34.7 g/dL (33.0-36.5); MEAN CORPUSCULAR VOLUME 95.8 FL (78-98); MEAN PLATELET VOLUME 8.7 FL (7.4-10.4); MONOCYTES # (AUTO) 0.1 X10'3 (0-0.9); MONOCYTES % (AUTO) 1.2 % (2-12); NEUTROPHILS # (AUTO) 8.7 X10'3 (1.8-7.7); PLATELET COUNT 242 X10'3 (140-440); RED BLOOD COUNT 4.19 X10'6 (4.20-5.60); RED CELL DISTRIBUTION WIDTH 12.6 % (11.5-14.5); WHITE BLOOD COUNT 9.5 X10'3 (4.5-11.0)
--- NOTE | 2019-05-24 06:25 | NUR ---
Problems reprioritized. Patient report given, questions answered & plan of care reviewed with Lien ANTHONY. Patient is resting.
[2019-05-24 06:35] LABS: ALBUMIN 3.2 G/DL (3.4-5.0); ANION GAP 9 (8-16); BLOOD UREA NITROGEN 13 MG/DL (7-18); BUN/CREATININE RATIO 14.1 (6.6-38.0); CALCIUM 8.6 MG/DL (8.5-10.1); CHLORIDE 103 MMOL/L (99-107); CREATININE 0.92 MG/DL (0.40-0.90); GLUCOSE 155 MG/DL (70-104); POTASSIUM 4.2 MMOL/L (3.5-5.1); SODIUM 138 MMOL/L (135-145); TOTAL CARBON DIOXIDE 25.9 MMOL/L (24-32); eGFR 59 ML/MIN
--- NOTE | 2019-05-24 06:38 | NUR ---
Patient in room MYKE 354. I have received report from Rebecca and had the opportunity to ask questions and assume patient care.
[2019-05-24] MEDS: enoxaparin 40mg/0.4ml syringe SUBCUT SCH (07:54)
[2019-05-24 11:00] VITALS: BP 131/46
[2019-05-24] MEDS: levoFLOXACIN 500mg tablet PO SCH (11:16)
[2019-05-24] MEDS ORDERED: fluconazole 150mg tablet PO ONE (11:20)
[2019-05-24] MEDS: methylPREDNISolone sod succ/PF 40mg inj. IV SCH ×2 (13:07→19:56)
[2019-05-24 18:00] VITALS: BP 139/72
--- NOTE | 2019-05-24 18:21 | NUR ---
Problems reprioritized. Patient report given, questions answered & plan of care reviewed with prudence.
[2019-05-24] MEDS: ondansetron/PF 4mg/2ml inj IV PRN (18:32)
[2019-05-25] VITALS: BP 126/67
[2019-05-25] MEDS: ondansetron/PF 4mg/2ml inj IV PRN (00:53)
[2019-05-25] MEDS: acetaminophen 325mg tablet PO PRN (00:54)
[2019-05-25] MEDS: methylPREDNISolone sod succ/PF 40mg inj. IV SCH ×3 (02:13→14:00)
[2019-05-25] MEDS: mag hydrox/Alum hydrox/simeth 30ml oral suspension PO PRN (02:18)
[2019-05-25] MEDS: ipratropium 0.5 MG/2.5ML nebule IH SCH ×3 (02:40→10:47)
[2019-05-25 05:35] LABS: BASOPHILS % (AUTO) 0 % (0-1); EOSINOPHILS % (AUTO) 0 % (0-6); HEMATOCRIT 41.8 % (35.0-45.0); HEMOGLOBIN 14.3 g/dl (12.0-16.0); LYMPHOCYTES # (AUTO) 0.8 X10'3 (1.1-4.8); LYMPHOCYTES % (AUTO) 5.5 % (21-51); MEAN CORPUSCULAR HEMOGLOBIN 33.1 PG (27.0-31.0); MEAN CORPUSCULAR HGB CONC 34.1 g/dL (33.0-36.5); MEAN CORPUSCULAR VOLUME 97.1 FL (78-98); MEAN PLATELET VOLUME 8.4 FL (7.4-10.4); MONOCYTES # (AUTO) 0.8 X10'3 (0-0.9); MONOCYTES % (AUTO) 5.7 % (2-12); NEUTROPHILS # (AUTO) 12.9 X10'3 (1.8-7.7); NEUTROPHILS % (AUTO) 88.8 % (42-75); PLATELET COUNT 259 X10'3 (140-440); RED BLOOD COUNT 4.31 X10'6 (4.20-5.60); RED CELL DISTRIBUTION WIDTH 12.4 % (11.5-14.5); WHITE BLOOD COUNT 14.5 X10'3 (4.5-11.0)
[2019-05-25 06:01] LABS: ALBUMIN 3.3 G/DL (3.4-5.0); ANION GAP 9 (8-16); BLOOD UREA NITROGEN 17 MG/DL (7-18); BUN/CREATININE RATIO 18.5 (6.6-38.0); CALCIUM 8.7 MG/DL (8.5-10.1); CHLORIDE 103 MMOL/L (99-107); CREATININE 0.92 MG/DL (0.40-0.90); GLUCOSE 145 MG/DL (70-104); SODIUM 140 MMOL/L (135-145); eGFR 59 ML/MIN
[2019-05-25] MEDS: enoxaparin 40mg/0.4ml syringe SUBCUT SCH (08:12)
[2019-05-25 09:40] VITALS: BP 128/63
[2019-05-25] MEDS: levoFLOXACIN 500mg tablet PO SCH (11:14)
[2019-05-25] MEDS ORDERED: diphenhydrAMINE 25mg capsule PO ONE (11:40)
[2019-05-25] MEDS ORDERED: LEVO500T89 PO (12:02)
[2019-05-25] MEDS ORDERED: PRED10TA23 PO (12:05)
[2019-05-25] MEDS ORDERED: FLUC150T66 PO (14:21)
--- NOTE | 2019-05-25 14:30 | NUR ---
Pt discharged home with daughter. Taken down to vehicle by aide. Tele removed, IV taken out. Meds called into pharmacy, including add on of fluconazole. Pt comfortable with discharge and was appropriate to go home. Breathing well, no drop in oxygenation today, has home cpap for night. All belongings taken from room.
== END 2019-05-25 14:31 | disposition home or self-care (01) | DRG 193 ==
LOC: ER 01:09 → ED HOLD 02:05 → SUR 3N 05:30
PROVIDERS: ADMIT Hospitalist; ATTEND Hospitalist
PROC: B32T1ZZ Computerized Tomography (CT Scan) of Left Pulmonary Artery using Low Osmolar Contrast (ICD-10-PCS; principal; 2019-05-23)
PROC: B3201ZZ Computerized Tomography (CT Scan) of Thoracic Aorta using Low Osmolar Contrast (ICD-10-PCS; 2019-05-23)
PROC: B32S1ZZ Computerized Tomography (CT Scan) of Right Pulmonary Artery using Low Osmolar Contrast (ICD-10-PCS; 2019-05-23)
DX: J18.9 Pneumonia, unspecified organism (principal); J96.01 Acute respiratory failure with hypoxia; J45.901 Unspecified asthma with (acute) exacerbation; J44.0 Chronic obstructive pulmonary disease with (acute) lower respiratory infection; G89.29 Other chronic pain; M54.5 Low back pain; Z82.49 Family history of ischemic heart disease and other diseases of the circulatory system; Z82.5 Family history of asthma and other chronic lower respiratory diseases; Z90.710 Acquired absence of both cervix and uterus; Z88.0 Allergy status to penicillin; Z88.8 Allergy status to other drugs, medicaments and biological substances; Z90.49 Acquired absence of other specified parts of digestive tract
CPT/HCPCS: 36415; 71045; 71275; 80048; 80053; 83880; 84484; 85025; 85610; 85730; 87081; 87502; 87503; 93005; 94640; 94760; 99285; G0378; J1650; J1956; J2405; J2920; J2930; J7512; Q0163; Q9967

== ENCOUNTER 2019-08-30 05:16 | Emergency (ER) | payer MEDICARE, OTHER ==
[~2019-08-30] VITALS: Ht 160 cm; Wt 63.6 kg
[~2019-08-30 05:16] MED LIST changes: -LACT1CAP65 PO; -NITR0.4T51 SL
--- NOTE | 2019-08-30 05:49 | NUR ---
pt became more sob with needing to sit EOB so MD notified to bedside and RT here. Pt nauseated.
[2019-08-30] MEDS ORDERED: normal saline 1000ML IV soln IVB ONE (05:50)
[2019-08-30] MEDS ORDERED: ondansetron/PF 4mg/2ml inj IV ONE (05:50)
[2019-08-30] MEDS ORDERED: ipratropium/albuterol 3ml nebule NEB ONE (05:50)
[2019-08-30] MEDS ORDERED: methylPREDNISolone sod succ 125mg/2ml vial IV ONE (05:50)
[2019-08-30 07:30] LABS: BASOPHILS # (AUTO) 0.1 X10'3 (0-0.2); BASOPHILS % (AUTO) 0.4 % (0-1); EOSINOPHILS # (AUTO) 0.2 X10'3 (0-0.9); EOSINOPHILS % (AUTO) 1.2 % (0-6); HEMATOCRIT 43.7 % (35.0-45.0); LYMPHOCYTES # (AUTO) 1.4 X10'3 (1.1-4.8); MEAN CORPUSCULAR HEMOGLOBIN 33.3 PG (27.0-31.0); MEAN CORPUSCULAR HGB CONC 34.4 g/dL (33.0-36.5); MEAN CORPUSCULAR VOLUME 96.7 FL (78-98); MEAN PLATELET VOLUME 8.2 FL (7.4-10.4); MONOCYTES # (AUTO) 0.6 X10'3 (0-0.9); MONOCYTES % (AUTO) 4.4 % (2-12); NEUTROPHILS # (AUTO) 11.8 X10'3 (1.8-7.7); PLATELET COUNT 270 X10'3 (140-440); RED BLOOD COUNT 4.52 X10'6 (4.20-5.60)
[2019-08-30 07:44] LABS: ALANINE AMINOTRANSFERASE 21 U/L (12-78); ALBUMIN 3.4 G/DL (3.4-5.0); ALBUMIN/GLOBULIN RATIO 0.9 (1.1-1.5); ALKALINE PHOSPHATASE 68 IU/L (46-116); ANION GAP 7 (8-16); ASPARTATE AMINO TRANSFERASE 19 U/L (10-37); BILIRUBIN,TOTAL 0.3 MG/DL (0.1-1.0); BLOOD UREA NITROGEN 19 MG/DL (7-18); BUN/CREATININE RATIO 20.9 (6.6-38.0); CALCIUM 8.8 MG/DL (8.5-10.1); CHLORIDE 106 MMOL/L (99-107); CREATININE 0.91 MG/DL (0.40-0.90); GLUCOSE 132 MG/DL (70-104); POTASSIUM 3.9 MMOL/L (3.5-5.1); SODIUM 141 MMOL/L (135-145); TOTAL CARBON DIOXIDE 28.4 MMOL/L (24-32); eGFR 60 ML/MIN
--- NOTE | 2019-08-30 08:05 | NUR ---
dr. florian removed oxygen. pt on sat 93%
[2019-08-30] MEDS ORDERED: azithromycin 250mg tablet PO ONE (08:15)
[2019-08-30 08:34] VITALS: BP 127/56
--- NOTE | 2019-08-30 08:42 | NUR ---
pt tolerated ambulating around unit. 02 sat 93-94%, hr 105. pt slightly labored.
[2019-08-30] MEDS ORDERED: PRED20TA PO (08:47)
[2019-08-30] MEDS ORDERED: AZIT-63 PO (08:47)
== END 2019-08-30 09:12 | disposition home or self-care (01) ==
LOC: ER 05:16
DX: J44.1 Chronic obstructive pulmonary disease with (acute) exacerbation (principal); J96.01 Acute respiratory failure with hypoxia; Z90.49 Acquired absence of other specified parts of digestive tract; Z90.710 Acquired absence of both cervix and uterus; Z88.2 Allergy status to sulfonamides; Z88.1 Allergy status to other antibiotic agents; Z79.2 Long term (current) use of antibiotics; Z79.899 Other long term (current) drug therapy
CPT/HCPCS: 36415; 71045; 80053; 83880; 84145; 85025; 93005; 94640; 96374; 96375; 99285; J2405; J2930; J7030; 94760

== ENCOUNTER 2020-05-25 19:32 | Inpatient (IN) | payer MEDICARE, OTHER ==
[~2020-05-25] VITALS: Ht 160 cm; Wt 67.3 kg
[~2020-05-25 19:32] MED LIST changes: -CYAN100T46 PO; +CYAN100T47 PO
--- NOTE | 2020-05-25 19:54 | NUR ---
MARITA GOETZ: [phone]
[2020-05-25 20:14] LABS: BASOPHILS # (AUTO) 0.1 X10'3 (0-0.2); BASOPHILS % (AUTO) 0.4 % (0-1); EOSINOPHILS # (AUTO) 0.3 X10'3 (0-0.9); HEMATOCRIT 43.1 % (35.0-45.0); HEMOGLOBIN 14.6 g/dl (12.0-16.0); LYMPHOCYTES # (AUTO) 2.3 X10'3 (1.1-4.8); LYMPHOCYTES % (AUTO) 15.6 % (21-51); MEAN CORPUSCULAR HEMOGLOBIN 32.8 PG (27.0-31.0); MEAN CORPUSCULAR HGB CONC 33.8 g/dL (33.0-36.5); MEAN CORPUSCULAR VOLUME 96.9 FL (78-98); MEAN PLATELET VOLUME 8.3 FL (7.4-10.4); MONOCYTES % (AUTO) 6.9 % (2-12); NEUTROPHILS # (AUTO) 11.2 X10'3 (1.8-7.7); NEUTROPHILS % (AUTO) 75.1 % (42-75); PLATELET COUNT 270 X10'3 (140-440); RED BLOOD COUNT 4.45 X10'6 (4.20-5.60); RED CELL DISTRIBUTION WIDTH 12.3 % (11.5-14.5); WHITE BLOOD COUNT 14.9 X10'3 (4.5-11.0)
[2020-05-25 20:25] LABS: ABG BASE EXCESS -1.1 mmol/L (-2.0-2.0); ABG HCO3 26.2 mmol/L (22.0-26.0); ABG PCO2 (T) 53.4 mmHg (32.0-45.0); ABG PO2 (T) 186.5 mmHg (75.0-100.0); ALLEN'S TEST POSITIVE; FCOHb 0.7 % (0.0-3.9); FMetHb 0.2 % (0.0-1.5); FO2Hb 98.1 % (94-97); PATIENT TEMPERATURE 36.9; TOTAL HEMOGLOBIN 15.2 G/dl (12.0-16.0)
[2020-05-25 20:40] LABS: ALANINE AMINOTRANSFERASE 25 U/L (12-78); ALBUMIN 3.6 G/DL (3.4-5.0); ALKALINE PHOSPHATASE 76 IU/L (46-116); ANION GAP 10 (8-16); ASPARTATE AMINO TRANSFERASE 16 U/L (10-37); BILIRUBIN,TOTAL 0.5 MG/DL (0.1-1.0); BLOOD UREA NITROGEN 18 MG/DL (7-18); BUN/CREATININE RATIO 18.6 (6.6-38.0); CALCIUM 9.2 MG/DL (8.5-10.1); CHLORIDE 101 MMOL/L (99-107); CREATININE 0.97 MG/DL (0.40-0.90); GLUCOSE 235 MG/DL (70-104); POTASSIUM 3.6 MMOL/L (3.5-5.1); SODIUM 138 MMOL/L (135-145); TOTAL CARBON DIOXIDE 27.2 MMOL/L (24-32); TOTAL PROTEIN 7.2 G/DL (6.4-8.2); eGFR 55 ML/MIN
[2020-05-25] MEDS ORDERED: PROG100C11 PO (20:44)
[2020-05-25] MEDS ORDERED: BUDE10.2 INH (20:44)
[2020-05-25 20:49] LABS: C-REACTIVE PROTEIN 1.89 MG/DL (0.0-0.5); FERRITIN 152 NG/ML (8-252); LACTATE DEHYDROGENASE 186 U/L (81-234)
[2020-05-25] MEDS ORDERED: temazepam 15mg capsule PO PRN (21:00)
[2020-05-25 21:07] LABS: HEMOGLOBIN A1C 5.4 % (4.5-6.2)
[2020-05-25] MEDS ORDERED: acetaminophen 325mg tablet PO PRN ×2 (21:50)
[2020-05-25] MEDS ORDERED: mag hydrox/Alum hydrox/simeth 30ml oral suspension PO PRN (21:50)
[2020-05-25] MEDS ORDERED: potassium Cl 20 mEq SR tablet PO PRN ×2 (21:50)
[2020-05-25] MEDS ORDERED: potassium CL 10mEq/100ml bag 100 ML IV PRN ×2 (21:50)
[2020-05-25] MEDS ORDERED: magnesium Cl slow-release 64mg tablet PO PRN (21:50)
[2020-05-25] MEDS ORDERED: magnesium 2GM in 50ml NS 50 ML IV PRN (21:50)
[2020-05-25] MEDS ORDERED: morphine 2 MG/ML inj. syringe IV PRN (21:50)
[2020-05-25] MEDS ORDERED: HYDROcodone/acetaminophen 5mg/325mg tablet PO PRN (21:50)
[2020-05-25] MEDS ORDERED: magnesium 4gm in 100ml NS 100 ML IV PRN (21:50)
[2020-05-25] MEDS ORDERED: ondansetron/PF 4mg/2ml inj IV PRN (21:50)
[2020-05-25] MEDS: albuterol 2.5 MG/3 ML nebule NEB SCH (23:39)
--- NOTE | 2020-05-26 01:08 | NUR ---
Patient in room ED 3. I have received report from Luz ANTHONY and had the opportunity to ask questions.
[2020-05-26 01:15] VITALS: BP 122/62
--- NOTE | 2020-05-26 01:15 | NUR ---
Patient arrived to unit from ED at 0115 via gurney and was transferred via slide board. Patient oriented to room, A&Ox4, call light in reach, hooked up to mobile, 2 RN skin check performed, and MRSA swab obtained. Patient vitals: BP: 122/62, HR: 94, RR: 20, SpO2: 96% on 2L, T: 98.5, and Pain 0. Will continue to monitor
[2020-05-26 02:00] VITALS: BP 119/45
[2020-05-26 02:08] LABS: BASOPHILS # (AUTO) 0.1 X10'3 (0-0.2); BASOPHILS % (AUTO) 0.4 % (0-1); EOSINOPHILS # (AUTO) 0.1 X10'3 (0-0.9); EOSINOPHILS % (AUTO) 0.5 % (0-6); HEMATOCRIT 40.6 % (35.0-45.0); HEMOGLOBIN 14.1 g/dl (12.0-16.0); LYMPHOCYTES # (AUTO) 1.5 X10'3 (1.1-4.8); LYMPHOCYTES % (AUTO) 9.8 % (21-51); MEAN CORPUSCULAR HEMOGLOBIN 33.6 PG (27.0-31.0); MEAN CORPUSCULAR HGB CONC 34.6 g/dL (33.0-36.5); MEAN CORPUSCULAR VOLUME 97.2 FL (78-98); MONOCYTES # (AUTO) 1.3 X10'3 (0-0.9); MONOCYTES % (AUTO) 8.6 % (2-12); NEUTROPHILS # (AUTO) 12.2 X10'3 (1.8-7.7); NEUTROPHILS % (AUTO) 80.7 % (42-75); PLATELET COUNT 235 X10'3 (140-440); RED BLOOD COUNT 4.18 X10'6 (4.20-5.60); RED CELL DISTRIBUTION WIDTH 12.3 % (11.5-14.5); WHITE BLOOD COUNT 15.1 X10'3 (4.5-11.0)
[2020-05-26 02:24] LABS: ALANINE AMINOTRANSFERASE 22 U/L (12-78); ALBUMIN 3.3 G/DL (3.4-5.0); ALBUMIN/GLOBULIN RATIO 0.9 (1.1-1.5); ALKALINE PHOSPHATASE 70 IU/L (46-116); ANION GAP 9 (8-16); ASPARTATE AMINO TRANSFERASE 17 U/L (10-37); BILIRUBIN,TOTAL 0.6 MG/DL (0.1-1.0); BLOOD UREA NITROGEN 15 MG/DL (7-18); BUN/CREATININE RATIO 17.9 (6.6-38.0); CALCIUM 9.1 MG/DL (8.5-10.1); CHLORIDE 102 MMOL/L (99-107); CREATININE 0.84 MG/DL (0.40-0.90); GLUCOSE 131 MG/DL (70-104); POTASSIUM 4.3 MMOL/L (3.5-5.1); SODIUM 137 MMOL/L (135-145); TOTAL CARBON DIOXIDE 25.9 MMOL/L (24-32); TOTAL PROTEIN 6.8 G/DL (6.4-8.2); eGFR 65 ML/MIN
[2020-05-26 02:27] LABS: MAGNESIUM 1.9 MG/DL (1.5-2.4)
[2020-05-26] MEDS: albuterol 2.5 MG/3 ML nebule NEB SCH ×3 (03:31→12:00)
[2020-05-26 04:00] VITALS: BP 136/52
--- NOTE | 2020-05-26 06:40 | NUR ---
Problems reprioritized. Patient report given, questions answered & plan of care reviewed with Majo ANTHONY.
[2020-05-26 07:00] VITALS: BP 124/60
[2020-05-26] MEDS ORDERED: heparin, porcine 5000 units/ml vial SQ SCH (08:00)
[2020-05-26] MEDS ORDERED: methylPREDNISolone sod succ/PF 40mg inj. IV SCH (08:00)
[2020-05-26] MEDS ORDERED: K and/or MAG REPLACEMENT MC SCH (08:00)
[2020-05-26] MEDS ORDERED: budesonide 0.5mg/2ml UD nebule IH SCH (08:00)
[2020-05-26] MEDS ORDERED: CefTRIAXone 2gm/D5W 50ml BAG 50 ML IV SCH (08:00)
[2020-05-26] MEDS ORDERED: docusate sod 100mg capsule PO SCH (08:00)
[2020-05-26] MEDS ORDERED: azithromycin 250mg tablet PO SCH (10:15)
[2020-05-26 11:00] VITALS: BP 127/56
[2020-05-26] MEDS ORDERED: AZI25OT PO (12:44)
[2020-05-26] MEDS ORDERED: PRED10TA23 PO (12:44)
[2020-05-26] MEDS ORDERED: CEFD300C3 PO (12:44)
[2020-05-26] MEDS ORDERED: ondansetron 4mg rapidly disintigrating tab PO PRN (12:50)
--- NOTE | 2020-05-26 15:11 | NUR ---
Patient d/c to home at 1311. PIV removed with cannula intact. RX were escripted to [address] in [place]. MEdication and d/c instructions were reviewed with the patient and she verbalized understanding. She left in a private vehicle with her daughter. Vital signs are stable. Patient AOx4, and is appropriate.
== END 2020-05-26 15:15 | disposition home or self-care (01) | DRG 191 ==
LOC: ER 19:32 → ED HOLD 21:49 → PCU 3S 05-26 01:15
PROVIDERS: ADMIT Internal Medicine; ATTEND Family Medicine
PROC: 5A09357 Assistance with Respiratory Ventilation, Less than 24 Consecutive Hours, Continuous Positive Airway Pressure (ICD-10-PCS; principal; 2020-05-25)
PROC: 5A09357 Assistance with Respiratory Ventilation, Less than 24 Consecutive Hours, Continuous Positive Airway Pressure (ICD-10-PCS; 2020-05-26)
DX: J44.1 Chronic obstructive pulmonary disease with (acute) exacerbation (principal); E87.2 Acidosis; R73.9 Hyperglycemia, unspecified; G89.29 Other chronic pain; I27.20 Pulmonary hypertension, unspecified; M25.511 Pain in right shoulder; M25.521 Pain in right elbow; R06.03 Acute respiratory distress; Z20.828 Contact with and (suspected) exposure to other viral communicable diseases; Z90.710 Acquired absence of both cervix and uterus; Z88.0 Allergy status to penicillin; Z88.8 Allergy status to other drugs, medicaments and biological substances; Z90.49 Acquired absence of other specified parts of digestive tract; Z82.49 Family history of ischemic heart disease and other diseases of the circulatory system; Z82.5 Family history of asthma and other chronic lower respiratory diseases
CPT/HCPCS: 36415; 36600; 71045; 80053; 82728; 82803; 83036; 83615; 83735; 83880; 84145; 84484; 85018; 85025; 85384; 86140; 87040; 87081; 87635; 93005; 94640; 94660; 94760; 96365; 96375; 97161; 97530; 99291; C9803; G0378; J0696; J1644; J2920; J7626

== ENCOUNTER 2021-05-20 16:23 | Emergency (ER) | payer MEDICARE, OTHER ==
[~2021-05-20] VITALS: Ht 160 cm; Wt 62.0 kg
[~2021-05-20 16:23] MED LIST changes: -AZEL137S4 BOTHNARES; +AZI25OT PO; +BUDE10.2 INH; -FLUT16SP2 BOTHNARES; -TIOT4MIS5 INH
[2021-05-20 16:33] VITALS: BP 154/96
[2021-05-20] MEDS ORDERED: ipratropium/albuterol 3ml nebule NEB ONE (17:05)
[2021-05-20] MEDS ORDERED: ONDA4TAB6 PO (17:47)
[2021-05-20] MEDS ORDERED: PRED20TA PO (17:47)
== END 2021-05-20 18:09 | disposition home or self-care (01) ==
LOC: ER 16:24
DX: B34.9 Viral infection, unspecified (principal); Z20.822 Contact with and (suspected) exposure to COVID-19; R06.02 Shortness of breath; R05.9 Cough, unspecified; R11.2 Nausea with vomiting, unspecified; J44.9 Chronic obstructive pulmonary disease, unspecified; Z90.49 Acquired absence of other specified parts of digestive tract; Z90.710 Acquired absence of both cervix and uterus; Z98.890 Other specified postprocedural states; Z88.2 Allergy status to sulfonamides; Z88.1 Allergy status to other antibiotic agents; Z79.2 Long term (current) use of antibiotics; Z79.899 Other long term (current) drug therapy
CPT/HCPCS: 71045; 87635; 93005; 94640; 99285; C9803; 94760

== ENCOUNTER 2021-09-12 10:53 | Emergency (ER) | payer MEDICARE, OTHER ==
[~2021-09-12] VITALS: Ht 160 cm; Wt 58.6 kg
[~2021-09-12 10:53] MED LIST changes: +ONDA4TAB6 PO
[2021-09-12 11:52] LABS: BASOPHILS # (AUTO) 0.1 X10'3 (0-0.2); BASOPHILS % (AUTO) 0.8 % (0-1); EOSINOPHILS # (AUTO) 0.7 X10'3 (0-0.9); EOSINOPHILS % (AUTO) 8.4 % (0-6); HEMATOCRIT 43.2 % (35.0-45.0); HEMOGLOBIN 14.6 g/dl (12.0-16.0); LYMPHOCYTES # (AUTO) 1.7 X10'3 (1.1-4.8); LYMPHOCYTES % (AUTO) 21.8 % (21-51); MEAN CORPUSCULAR HEMOGLOBIN 32.5 PG (27.0-31.0); MEAN CORPUSCULAR HGB CONC 33.7 g/dL (33.0-36.5); MEAN CORPUSCULAR VOLUME 96.4 FL (78-98); MEAN PLATELET VOLUME 7.7 FL (7.4-10.4); MONOCYTES % (AUTO) 12.3 % (2-12); NEUTROPHILS # (AUTO) 4.6 X10'3 (1.8-7.7); NEUTROPHILS % (AUTO) 56.7 % (42-75); PLATELET COUNT 268 X10'3 (140-440); RED BLOOD COUNT 4.48 X10'6 (4.20-5.60); RED CELL DISTRIBUTION WIDTH 13.1 % (11.5-14.5)
[2021-09-12 12:05] LABS: ALANINE AMINOTRANSFERASE 20 U/L (12-78); ALBUMIN 3.5 G/DL (3.4-5.0); ALBUMIN/GLOBULIN RATIO 0.8 (1.1-1.5); ALKALINE PHOSPHATASE 68 IU/L (46-116); ANION GAP 9 (8-16); ASPARTATE AMINO TRANSFERASE 19 U/L (10-37); BILIRUBIN,TOTAL 0.5 MG/DL (0.1-1.0); BLOOD UREA NITROGEN 16 MG/DL (7-18); BUN/CREATININE RATIO 20.3 (6.6-38.0); CALCIUM 9.3 MG/DL (8.5-10.1); CHLORIDE 102 MMOL/L (99-107); CREATININE 0.79 MG/DL (0.40-0.90); GLUCOSE 94 MG/DL (70-104); SODIUM 139 MMOL/L (135-145); TOTAL CARBON DIOXIDE 27.9 MMOL/L (24-32); TOTAL PROTEIN 7.7 G/DL (6.4-8.2); eGFR 70 ML/MIN
[2021-09-12] MEDS ORDERED: dexamethasone sod phosphate 10mg/ml inj PO STA (12:30)
[2021-09-12] MEDS ORDERED: PRED20TA PO (12:34)
[2021-09-12 12:52] VITALS: BP 138/69
== END 2021-09-12 12:55 | disposition home or self-care (01) ==
LOC: ER 10:54
DX: J44.1 Chronic obstructive pulmonary disease with (acute) exacerbation (principal); Z90.49 Acquired absence of other specified parts of digestive tract; Z90.710 Acquired absence of both cervix and uterus; Z88.2 Allergy status to sulfonamides; Z88.1 Allergy status to other antibiotic agents; Z79.2 Long term (current) use of antibiotics; Z79.899 Other long term (current) drug therapy; Z86.16 Personal history of COVID-19
CPT/HCPCS: 36415; 71045; 80053; 83880; 84145; 84484; 85025; 93005; 99285; J1100

== ENCOUNTER 2021-11-19 08:48 | Inpatient (IN) | payer MEDICARE, OTHER ==
[~2021-11-19] VITALS: Ht 160 cm; Wt 58.2 kg
[~2021-11-19 08:48] MED LIST changes: +PRED20TA PO
[2021-11-19 09:51] LABS: BASOPHILS % (AUTO) 0 % (0-1); EOSINOPHILS % (AUTO) 0 % (0-6); HEMATOCRIT 42.6 % (35.0-45.0); HEMOGLOBIN 14.7 g/dl (12.0-16.0); LYMPHOCYTES # (AUTO) 0.6 X10'3 (1.1-4.8); LYMPHOCYTES % (AUTO) 3.2 % (21-51); MEAN CORPUSCULAR HEMOGLOBIN 32.6 PG (27.0-31.0); MEAN CORPUSCULAR HGB CONC 34.5 g/dL (33.0-36.5); MEAN CORPUSCULAR VOLUME 94.6 FL (78-98); MEAN PLATELET VOLUME 7.9 FL (7.4-10.4); MONOCYTES # (AUTO) 1.1 X10'3 (0-0.9); MONOCYTES % (AUTO) 6.1 % (2-12); NEUTROPHILS # (AUTO) 15.8 X10'3 (1.8-7.7); NEUTROPHILS % (AUTO) 90.7 % (42-75); PLATELET COUNT 199 X10'3 (140-440); RED CELL DISTRIBUTION WIDTH 12.4 % (11.5-14.5); WHITE BLOOD COUNT 17.5 X10'3 (4.5-11.0)
[2021-11-19 09:58] LABS: ALANINE AMINOTRANSFERASE 20 U/L (12-78); ALBUMIN 2.7 G/DL (3.4-5.0); ALBUMIN/GLOBULIN RATIO 0.6 (1.1-1.5); ALKALINE PHOSPHATASE 74 IU/L (46-116); ANION GAP 8 (8-16); ASPARTATE AMINO TRANSFERASE 22 U/L (10-37); BILIRUBIN,TOTAL 0.9 MG/DL (0.1-1.0); BLOOD UREA NITROGEN 21 MG/DL (7-18); BUN/CREATININE RATIO 24.1 (6.6-38.0); CALCIUM 8.8 MG/DL (8.5-10.1); CHLORIDE 97 MMOL/L (99-107); CREATININE 0.87 MG/DL (0.40-0.90); GLUCOSE 92 MG/DL (70-104); POTASSIUM 3.8 MMOL/L (3.5-5.1); SODIUM 132 MMOL/L (135-145); TOTAL CARBON DIOXIDE 26.7 MMOL/L (24-32); TOTAL PROTEIN 7.4 G/DL (6.4-8.2); eGFR 62 ML/MIN
[2021-11-19] MEDS ORDERED: methylPREDNISolone sod succ 125mg/2ml vial IV ONE (10:50)
[2021-11-19] MEDS ORDERED: CefTRIAXone 2gm/NS 100ml IVPB 100 ML IV ONE (10:50)
[2021-11-19] MEDS ORDERED: ipratropium/albuterol 3ml nebule NEB ONE (10:50)
[2021-11-19] MEDS ORDERED: normal saline 1000ML IV soln IVB ONE (10:50)
[2021-11-19] MEDS ORDERED: albuterol 2.5 MG/3 ML nebule NEB PRN (12:20)
[2021-11-19] MEDS ORDERED: potassium CL 10mEq/100ml bag 100 ML IV PRN (12:20)
[2021-11-19] MEDS ORDERED: ondansetron/PF 4mg/2ml inj IV PRN (12:20)
[2021-11-19] MEDS ORDERED: magnesium 4gm in 100ml NS 100 ML IV PRN (12:20)
[2021-11-19] MEDS ORDERED: mag hydrox/Alum hydrox/simeth 30ml oral suspension PO PRN (12:20)
[2021-11-19] MEDS ORDERED: acetaminophen 325mg tablet PO PRN ×2 (12:20)
[2021-11-19] MEDS ORDERED: magnesium 2GM in 50ml NS 50 ML IV PRN (12:20)
[2021-11-19] MEDS ORDERED: HYDROcodone/acetaminophen 10/325mg tab PO PRN (12:20)
[2021-11-19] MEDS ORDERED: HYDROcodone/acetaminophen 5mg/325mg tablet PO PRN (12:20)
[2021-11-19] MEDS ORDERED: POTASSIUM BICARB 20meq eff tab 20 MEQ TABLET.EFF PO PRN ×2 (12:20)
[2021-11-19] MEDS: normal saline 1000ml 1,000 ML IV SCH ×2 (12:50→21:07)
[2021-11-19] MEDS: azithromycin/NS 500mg/250ml 250 ML IV SCH (12:50)
[2021-11-19 14:50] LABS: D-DIMER 3.24 MG/L FEU (0-0.50)
[2021-11-19] MEDS: ipratropium/albuterol 3ml nebule NEB PRN (17:25)
--- NOTE | 2021-11-19 19:00 | NUR ---
Patient in room ORTHO 4006. I have received report from GABRIELLE Bailey and had the opportunity to ask questions and assume patient care.
--- NOTE | 2021-11-19 19:15 | NUR ---
pt arrived to floor via gurney. ambulated to bathroom. oriented to the room, call light. pt settled into bed.
[2021-11-19 19:20] VITALS: BP 115/43
[2021-11-19] MEDS ORDERED: enoxaparin 40mg/0.4ml syringe SQ SCH (20:00)
[2021-11-19] MEDS: K and/or MAG REPLACEMENT MC SCH (20:00)
[2021-11-19] MEDS: budesonide 0.5mg/2ml UD nebule IH SCH (20:44)
[2021-11-19] MEDS ORDERED: progesterone, micronized 100mg capsule PO SCH (21:00)
[2021-11-19] MEDS: calcium carbonate/vitamin D3 tablet PO SCH (21:06)
[2021-11-19] MEDS: docusate sod 100mg capsule PO SCH (21:07)
[2021-11-19 22:00] VITALS: BP 120/61
[2021-11-19] MEDS: oseltamivir phos 75mg capsule PO SCH (22:59)
[2021-11-19] MEDS ORDERED: benzocaine/menthol oral lozeng 1 EACH BOX MM PRN (23:40)
[2021-11-20] MEDS: benzonatate 100mg capsule PO PRN ×2 (00:59→08:54)
[2021-11-20 06:00] VITALS: BP 126/62
[2021-11-20 06:11] LABS: BASOPHILS % (AUTO) 0.1 % (0-1); EOSINOPHILS % (AUTO) 0 % (0-6); HEMATOCRIT 38.8 % (35.0-45.0); HEMOGLOBIN 13.3 g/dl (12.0-16.0); LYMPHOCYTES # (AUTO) 0.5 X10'3 (1.1-4.8); LYMPHOCYTES % (AUTO) 4.2 % (21-51); MEAN CORPUSCULAR HEMOGLOBIN 32.5 PG (27.0-31.0); MEAN CORPUSCULAR HGB CONC 34.2 g/dL (33.0-36.5); MEAN CORPUSCULAR VOLUME 95.1 FL (78-98); MONOCYTES # (AUTO) 0.6 X10'3 (0-0.9); NEUTROPHILS # (AUTO) 10.6 X10'3 (1.8-7.7); NEUTROPHILS % (AUTO) 90.7 % (42-75); PLATELET COUNT 212 X10'3 (140-440); RED BLOOD COUNT 4.08 X10'6 (4.20-5.60); RED CELL DISTRIBUTION WIDTH 12.9 % (11.5-14.5); WHITE BLOOD COUNT 11.6 X10'3 (4.5-11.0)
[2021-11-20 06:12] LABS: ALANINE AMINOTRANSFERASE 24 U/L (12-78); ALBUMIN 2.2 G/DL (3.4-5.0); ALBUMIN/GLOBULIN RATIO 0.5 (1.1-1.5); ALKALINE PHOSPHATASE 61 IU/L (46-116); ANION GAP 10 (8-16); ASPARTATE AMINO TRANSFERASE 38 U/L (10-37); BILIRUBIN,TOTAL 0.3 MG/DL (0.1-1.0); BLOOD UREA NITROGEN 21 MG/DL (7-18); BUN/CREATININE RATIO 29.2 (6.6-38.0); CALCIUM 8.3 MG/DL (8.5-10.1); CHLORIDE 104 MMOL/L (99-107); CREATININE 0.72 MG/DL (0.40-0.90); GLUCOSE 135 MG/DL (70-104); MAGNESIUM 2.4 MG/DL (1.5-2.4); POTASSIUM 3.7 MMOL/L (3.5-5.1); SODIUM 140 MMOL/L (135-145); TOTAL CARBON DIOXIDE 26.4 MMOL/L (24-32); TOTAL PROTEIN 6.4 G/DL (6.4-8.2); eGFR 78 ML/MIN
--- NOTE | 2021-11-20 06:41 | NUR ---
Problems reprioritized. Patient report given, questions answered & plan of care reviewed with GABRIELLE Sheldon.
[2021-11-20] MEDS ORDERED: cefTRIAXone 1g/NS 100ml IVPB 100 ML IV SCH (08:00)
[2021-11-20] MEDS: K and/or MAG REPLACEMENT MC SCH (08:00)
[2021-11-20] MEDS ORDERED: OMEGA-3/DHA/EPA/FISH OIL 1 EACH CAPSULE.DR PO SCH (08:00)
[2021-11-20] MEDS ORDERED: cyanocobalamin 500mcg tablet PO SCH (08:00)
[2021-11-20] MEDS ORDERED: estradiol 1mg tablet PO SCH (08:00)
[2021-11-20] MEDS ORDERED: azithromycin/NS 500mg/250ml 250 ML IV SCH (08:00)
[2021-11-20] MEDS: ipratropium/albuterol 3ml nebule NEB PRN (08:07)
[2021-11-20] MEDS: budesonide 0.5mg/2ml UD nebule IH SCH (08:07)
[2021-11-20] MEDS: oseltamivir phos 75mg capsule PO SCH (08:54)
[2021-11-20] MEDS: docusate sod 100mg capsule PO SCH (08:54)
[2021-11-20] MEDS: calcium carbonate/vitamin D3 tablet PO SCH (08:54)
[2021-11-20] MEDS: normal saline 1000ml 1,000 ML IV SCH (08:55)
[2021-11-20 10:00] VITALS: BP 118/62
[2021-11-20] MEDS ORDERED: iohexol 350MG/ML 100ml bottle IV ONE (12:27)
[2021-11-20] MEDS ORDERED: iohexol 350 MG/ML 50ML vial IV ONE (12:27)
[2021-11-20] MEDS: azithromycin/NS 500mg/250ml 250 ML IV SCH (14:28)
[2021-11-20] MEDS ORDERED: CEFD300C3 PO (14:37)
[2021-11-20] MEDS ORDERED: BENZ-69 PO (14:37)
[2021-11-20] MEDS ORDERED: TAM75C PO (14:37)
== END 2021-11-20 17:30 | disposition home or self-care (01) | DRG 871 ==
LOC: ER 08:48 → ED HOLD 12:27 → CANBEDREQ 16:44 → ORTHO 4S 19:25
PROVIDERS: ADMIT Family Medicine; ATTEND Family Medicine
PROC: B32T1ZZ Computerized Tomography (CT Scan) of Left Pulmonary Artery using Low Osmolar Contrast (ICD-10-PCS; principal; 2021-11-20)
PROC: B3201ZZ Computerized Tomography (CT Scan) of Thoracic Aorta using Low Osmolar Contrast (ICD-10-PCS; 2021-11-20)
PROC: B32S1ZZ Computerized Tomography (CT Scan) of Right Pulmonary Artery using Low Osmolar Contrast (ICD-10-PCS; 2021-11-20)
DX: A41.89 Other specified sepsis (principal); J15.9 Unspecified bacterial pneumonia; J10.08 Influenza due to other identified influenza virus with other specified pneumonia; J10.01 Influenza due to other identified influenza virus with the same other identified influenza virus pneumonia; E87.1 Hypo-osmolality and hyponatremia; J44.0 Chronic obstructive pulmonary disease with (acute) lower respiratory infection; J44.1 Chronic obstructive pulmonary disease with (acute) exacerbation; I10 Essential (primary) hypertension; Z20.822 Contact with and (suspected) exposure to COVID-19; R59.0 Localized enlarged lymph nodes; I27.20 Pulmonary hypertension, unspecified; Z82.49 Family history of ischemic heart disease and other diseases of the circulatory system; Z82.5 Family history of asthma and other chronic lower respiratory diseases; Z90.710 Acquired absence of both cervix and uterus; Z90.49 Acquired absence of other specified parts of digestive tract; Z88.2 Allergy status to sulfonamides; Z88.1 Allergy status to other antibiotic agents; Z79.899 Other long term (current) drug therapy
CPT/HCPCS: 36415; 71045; 71275; 80053; 83605; 83735; 83880; 84145; 84484; 85025; 85379; 87040; 87081; 87502; 87503; 87635; 93005; 94640; 94760; 96365; 96375; 99285; C9803; G0378; J0456; J0696; J1650; J2930; J7030; Q9967

== ENCOUNTER 2022-01-04 08:33 | Outpatient (CLI) | payer MEDICARE, OTHER ==
[~2022-01-04 08:33] MED LIST changes: -AZI25OT PO; +BENZ-69 PO; +CEFD300C3 PO; -ONDA4TAB6 PO; -PRED20TA PO; +TAM75C PO; -VITA-134 PO
== END 2022-01-04 23:59 | disposition home or self-care (01) ==
LOC: 64 CT 08:33
PROVIDERS: ATTEND Nurse Practitioner Family
DX: I70.0 Atherosclerosis of aorta (principal); I25.10 Atherosclerotic heart disease of native coronary artery without angina pectoris; I89.9 Noninfective disorder of lymphatic vessels and lymph nodes, unspecified; Z90.49 Acquired absence of other specified parts of digestive tract
CPT/HCPCS: 71250

== ENCOUNTER 2022-02-21 08:10 | Emergency (ER) | payer MEDICARE, OTHER ==
[~2022-02-21] VITALS: Ht 160 cm; Wt 61.4 kg
[2022-02-21] MEDS ORDERED: ipratropium/albuterol 3ml nebule NEB PRN (08:35)
[2022-02-21] MEDS ORDERED: ipratropium/albuterol 3ml nebule ONE (08:52)
[2022-02-21] MEDS ORDERED: ibuprofen tablet 400 MG TABLET PO ONE (09:35)
[2022-02-21] MEDS ORDERED: LIDOcaine 5% patch TP ONE (09:35)
[2022-02-21] MEDS ORDERED: cyclobenzaprine 10mg tablet PO ONE (09:35)
[2022-02-21] MEDS ORDERED: CYCL-1 PO (10:40)
[2022-02-21 11:08] VITALS: BP 129/82
[2022-02-21] MEDS ORDERED: ALBU8.5H17 IH (13:49)
[2022-02-21] MEDS ORDERED: ESTR1TAB28 PO (13:49)
[2022-02-21] MEDS ORDERED: PANT40TA54 PO (13:49)
[2022-02-21] MEDS ORDERED: OMEG1CAP46 PO (16:07)
[2022-02-21] MEDS ORDERED: FLUT1DIS4 INH (16:07)
[2022-02-21] MEDS ORDERED: CYAN100T47 PO (16:07)
[2022-02-21] MEDS ORDERED: PROG100C11 PO (16:07)
[2022-02-21] MEDS ORDERED: CALC-854 PO (16:07)
== END 2022-02-21 11:14 | disposition home or self-care (01) ==
LOC: ER 08:10
DX: S16.1XXA Strain of muscle, fascia and tendon at neck level, initial encounter (principal); M54.2 Cervicalgia; J44.9 Chronic obstructive pulmonary disease, unspecified; M19.90 Unspecified osteoarthritis, unspecified site; G89.29 Other chronic pain; F17.200 Nicotine dependence, unspecified, uncomplicated; Z90.49 Acquired absence of other specified parts of digestive tract; Z90.710 Acquired absence of both cervix and uterus; Z88.2 Allergy status to sulfonamides; Z88.1 Allergy status to other antibiotic agents; Z79.899 Other long term (current) drug therapy; X58.XXXA Exposure to other specified factors, initial encounter; Y93.89 Activity, other specified; Y92.89 Other specified places as the place of occurrence of the external cause; Y99.8 Other external cause status
CPT/HCPCS: 94640; 99284

== ENCOUNTER 2022-02-21 11:56 | Inpatient (IN) | payer MEDICARE, OTHER ==
[~2022-02-21] VITALS: Ht 160 cm; Wt 54.5 kg
[~2022-02-21 11:56] MED LIST changes: +CYCL-1 PO
[2022-02-21] MEDS ORDERED: epiNEPHrine 1 mg/ml inj IM STA ×2 (12:00→12:08)
[2022-02-21] MEDS ORDERED: diphenhydrAMINE 50 mg/ml inj IV ONE (12:05)
[2022-02-21] MEDS ORDERED: methylPREDNISolone sod succ 125mg/2ml vial IV ONE (12:05)
[2022-02-21] MEDS ORDERED: albuterol 2.5 MG/3 ML nebule ONE (12:08)
[2022-02-21 12:14] LABS: ABG BASE EXCESS -9.1 mmol/L (-2.0-2.0); ABG HCO3 21.4 mmol/L (22.0-26.0); ABG OXYGEN SATURATION 94.6 % (94-97); ABG PCO2 (T) 65.9 mmHg (32.0-45.0); ABG PO2 (T) 91.3 mmHg (75.0-100.0); ALLEN'S TEST POSITIVE; FCOHb 0.4 % (0.0-3.9); FMetHb 0.3 % (0.0-1.5); FO2Hb 93.9 % (94-97); PATIENT TEMPERATURE 36.7; RESPIRATORY RATE 20 b/min; TIDAL VOLUME 500 mL; TOTAL HEMOGLOBIN 15.4 G/dl (12.0-16.0)
[2022-02-21] MEDS ORDERED: ringers solution, lactated 500ml IV solution IV ONE (12:25)
[2022-02-21] MEDS ORDERED: magnesium 2GM in 50ml NS 50 ML IV ONE (12:25)
[2022-02-21 12:39] LABS: ALANINE AMINOTRANSFERASE 24 U/L (12-78); ALBUMIN 3.6 G/DL (3.4-5.0); ALBUMIN/GLOBULIN RATIO 0.9 (1.1-1.5); ALKALINE PHOSPHATASE 62 IU/L (46-116); ANION GAP 11 (8-16); ASPARTATE AMINO TRANSFERASE 20 U/L (10-37); BILIRUBIN,TOTAL 0.6 MG/DL (0.1-1.0); BLOOD UREA NITROGEN 16 MG/DL (7-18); BUN/CREATININE RATIO 18.6 (6.6-38.0); CALCIUM 8.8 MG/DL (8.5-10.1); CHLORIDE 104 MMOL/L (99-107); CREATININE 0.86 MG/DL (0.40-0.90); GLUCOSE 136 MG/DL (70-104); SODIUM 142 MMOL/L (135-145); TOTAL CARBON DIOXIDE 27.4 MMOL/L (24-32); TOTAL PROTEIN 7.4 G/DL (6.4-8.2); eGFR 63 ML/MIN
[2022-02-21] MEDS ORDERED: midazolam 100mg in NS 100ml 100 ML IV PRN ×2 (12:40→12:55)
[2022-02-21] MEDS ORDERED: midazolam 100mg in NS 100ml 100 ML IV SCH (12:40)
[2022-02-21] MEDS ORDERED: rocuronium 10mg/ml inj IV ONE ×2 (12:40→14:00)
[2022-02-21] MEDS ORDERED: ketamine 10mg/ml 20ml inj vial IV ONE ×2 (12:40→12:45)
[2022-02-21 12:45] LABS: ABG BASE EXCESS -6.1 mmol/L (-2.0-2.0); ABG HCO3 22.7 mmol/L (22.0-26.0); ABG OXYGEN SATURATION 99.6 % (94-97); ABG PCO2 (T) 58.6 mmHg (32.0-45.0); ABG PO2 (T) 453.1 mmHg (75.0-100.0); FCOHb 0.2 % (0.0-3.9); FMetHb 0.4 % (0.0-1.5); PATIENT TEMPERATURE 36.7; RESPIRATORY RATE 20 b/min; TIDAL VOLUME 400 mL; TOTAL HEMOGLOBIN 13.8 G/dl (12.0-16.0)
[2022-02-21] MEDS ORDERED: ketamine 50 mg/ml 10ml vial ONE (12:46)
--- NOTE | 2022-02-21 12:55 | NUR ---
1250 100 KETAMINE 1252 150 KANE 1256 22 @ THE TEETH
[2022-02-21 13:28] LABS: BASOPHILS # (AUTO) 0.1 X10'3 (0-0.2); BASOPHILS % (AUTO) 0.5 % (0-1); EOSINOPHILS # (AUTO) 0.7 X10'3 (0-0.9); EOSINOPHILS % (AUTO) 5.6 % (0-6); HEMATOCRIT 43.1 % (35.0-45.0); HEMOGLOBIN 14.6 g/dl (12.0-16.0); LYMPHOCYTES # (AUTO) 4.6 X10'3 (1.1-4.8); LYMPHOCYTES % (AUTO) 36.7 % (21-51); MEAN CORPUSCULAR HEMOGLOBIN 32.7 PG (27.0-31.0); MEAN CORPUSCULAR HGB CONC 33.9 g/dL (33.0-36.5); MEAN CORPUSCULAR VOLUME 96.4 FL (78-98); MEAN PLATELET VOLUME 8.6 FL (7.4-10.4); MONOCYTES % (AUTO) 7.9 % (2-12); NEUTROPHILS # (AUTO) 6.2 X10'3 (1.8-7.7); NEUTROPHILS % (AUTO) 49.3 % (42-75); PLATELET COUNT 257 X10'3 (140-440); RED BLOOD COUNT 4.47 X10'6 (4.20-5.60); RED CELL DISTRIBUTION WIDTH 12.6 % (11.5-14.5); WHITE BLOOD COUNT 12.6 X10'3 (4.5-11.0)
[2022-02-21] MEDS: FENTANYL-0.9 % NACL/PF 100 ML IV SCH ×2 (13:42→13:52)
[2022-02-21] MEDS ORDERED: ESTR1TAB28 PO (13:49)
[2022-02-21] MEDS ORDERED: ALBU8.5H17 IH (13:49)
[2022-02-21] MEDS ORDERED: PANT40TA54 PO (13:49)
[2022-02-21 13:59] LABS: ABG BASE EXCESS -2.7 mmol/L (-2.0-2.0); ABG HCO3 21.7 mmol/L (22.0-26.0); ABG OXYGEN SATURATION 99.4 % (94-97); ABG PCO2 (T) 34.1 mmHg (32.0-45.0); FCOHb 0.3 % (0.0-3.9); FMetHb 0.3 % (0.0-1.5); FO2Hb 98.8 % (94-97); PATIENT TEMPERATURE 35.4; PEEP 5 cm H2O; RESPIRATORY RATE 24 b/min; TIDAL VOLUME 350 mL; TOTAL HEMOGLOBIN 14.5 G/dl (12.0-16.0)
[2022-02-21] MEDS ORDERED: sod chloride 0.9% 10ml flush syringe IV ONE (14:00)
[2022-02-21 14:06] VITALS: BP 142/69
[2022-02-21 16:00] VITALS: BP 155/75
[2022-02-21] MEDS ORDERED: FLUT1DIS4 INH (16:07)
[2022-02-21] MEDS ORDERED: OMEG1CAP46 PO (16:07)
[2022-02-21] MEDS ORDERED: PROG100C11 PO (16:07)
[2022-02-21] MEDS ORDERED: CALC-854 PO (16:07)
[2022-02-21] MEDS ORDERED: CYAN100T47 PO (16:07)
--- NOTE | 2022-02-21 16:10 | NUR ---
Telephone call to Dr Michael at this time regarding elevated Trop 77. Orders received, per MD keep SBP <140. Will continue to monitor, daughter at bedside.
[2022-02-21] MEDS ORDERED: metoprolol tartrate 1mg/ml inj IV ONE (16:25)
[2022-02-21] MEDS ORDERED: heparin 10,000 units/1 ML INJ IV ONE (16:25)
[2022-02-21] MEDS ORDERED: aspirin 81mg tab.chew PO ONE (16:25)
[2022-02-21] MEDS: HEPARIN SOD,PORK IN 0.45% NACL 250 ML IV SCH (17:09)
[2022-02-21 17:16] VITALS: BP 141/66
[2022-02-21] MEDS ORDERED: nitroGLYCERIN 1gm ointment UD TP ONE (17:25)
[2022-02-21 17:31] LABS: APTT 27 SECONDS (22-32)
[2022-02-21 18:59] VITALS: BP 99/43
--- NOTE | 2022-02-21 19:01 | NUR ---
BP DROPPING TO 102/48 AND THEN 99/43. SPOKE WITH CHARLIE ALBERT WHO ORDERED ME TO REMOVE NITRO PASTE. RN REMOVED PASTE AND WILL CONTINUE TO MONITOR BLOOD PRESSURE CHANGES. RT AT BEDSIDE ASSESSING PATIENT
[2022-02-21] MEDS ORDERED: metoprolol tartrate 1mg/ml inj IV PRN (19:55)
--- NOTE | 2022-02-21 20:00 | NUR ---
RN TURNED PT, PLACED PILLOWS UNDER RIGHT SIDE.
[2022-02-21] MEDS: ipratropium 0.5 MG/2.5ML nebule IH PRN (20:31)
--- NOTE | 2022-02-21 20:34 | NUR ---
RT AT BEDSIDE PERFORMING BREATHING TREATMENT
[2022-02-21] MEDS: atorvastatin 10mg tablet PO SCH (20:46)
--- NOTE | 2022-02-21 22:03 | NUR ---
PT REPOSITIONED. RT PAGED TO SUCTION PATIENT
[2022-02-21 22:17] VITALS: BP 128/64
--- NOTE | 2022-02-21 23:06 | NUR ---
CALLED CHAUNCEY TO REPORT LOW BP OF 95/49. RN RECEIVED VERBAL ORDER FOR 500ML OF 5% ALBUMIN IV
[2022-02-21] MEDS ORDERED: albumin (Human) 5% 250ml 250 ML IV ONE ×2 (23:10)
[2022-02-22] VITALS (20 sets, daily range): BP systolic 105–147; BP diastolic 45–63
[2022-02-22 00:57] LABS: ABG BASE EXCESS -0.9 mmol/L (-2.0-2.0); ABG HCO3 21.1 mmol/L (22.0-26.0); ABG OXYGEN SATURATION 95.5 % (94-97); ABG PO2 (T) 75.3 mmHg (75.0-100.0); ALLEN'S TEST POSITIVE; FMetHb 0.1 % (0.0-1.5); FO2Hb 95.4 % (94-97); PEEP 5 cm H2O; RESPIRATORY RATE 20 b/min; TIDAL VOLUME 350 mL; TOTAL HEMOGLOBIN 12.8 G/dl (12.0-16.0)
--- NOTE | 2022-02-22 00:58 | NUR ---
RT AT BEDSIDE ADJUSTING VENT SETTINGS. RESPIRATIONS REDUCED FROM 20 TO 14 PER ABG RESULTS.
--- NOTE | 2022-02-22 01:53 | NUR ---
RN REPOSITIONED PT
--- NOTE | 2022-02-22 03:08 | NUR ---
CALLED DR GROSSMAN REGARDING FLUIDS FOR PT. ORDERED NORMAL SALINE AT 75MLS/HR
[2022-02-22] MEDS: normal saline 1000ml 1,000 ML IV SCH ×2 (03:14→17:05)
[2022-02-22] MEDS: ipratropium 0.5 MG/2.5ML nebule IH PRN ×2 (03:17→11:45)
--- NOTE | 2022-02-22 03:30 | NUR ---
RT AT BEDSIDE
[2022-02-22 03:45] LABS: BASOPHILS % (AUTO) 0.2 % (0-1); EOSINOPHILS % (AUTO) 0 % (0-6); HEMATOCRIT 34.9 % (35.0-45.0); HEMOGLOBIN 12.1 g/dl (12.0-16.0); LYMPHOCYTES # (AUTO) 0.6 X10'3 (1.1-4.8); LYMPHOCYTES % (AUTO) 7.2 % (21-51); MEAN CORPUSCULAR HGB CONC 34.8 g/dL (33.0-36.5); MEAN CORPUSCULAR VOLUME 94.8 FL (78-98); MEAN PLATELET VOLUME 7.6 FL (7.4-10.4); MONOCYTES # (AUTO) 0.6 X10'3 (0-0.9); MONOCYTES % (AUTO) 6.8 % (2-12); NEUTROPHILS # (AUTO) 7.4 X10'3 (1.8-7.7); NEUTROPHILS % (AUTO) 85.8 % (42-75); PLATELET COUNT 160 X10'3 (140-440); RED BLOOD COUNT 3.68 X10'6 (4.20-5.60); RED CELL DISTRIBUTION WIDTH 12.5 % (11.5-14.5); WHITE BLOOD COUNT 8.7 X10'3 (4.5-11.0)
[2022-02-22 04:02] LABS: ALANINE AMINOTRANSFERASE 20 U/L (12-78); ALBUMIN 3.6 G/DL (3.4-5.0); ALBUMIN/GLOBULIN RATIO 1.1 (1.1-1.5); ALKALINE PHOSPHATASE 47 IU/L (46-116); ANION GAP 12 (8-16); ASPARTATE AMINO TRANSFERASE 17 U/L (10-37); BILIRUBIN,TOTAL 0.6 MG/DL (0.1-1.0); BLOOD UREA NITROGEN 19 MG/DL (7-18); BUN/CREATININE RATIO 22.6 (6.6-38.0); CALCIUM 8.1 MG/DL (8.5-10.1); CHLORIDE 104 MMOL/L (99-107); CREATININE 0.84 MG/DL (0.40-0.90); GLUCOSE 106 MG/DL (70-104); SODIUM 141 MMOL/L (135-145); TOTAL CARBON DIOXIDE 24.6 MMOL/L (24-32); TOTAL PROTEIN 6.8 G/DL (6.4-8.2); eGFR 65 ML/MIN
--- NOTE | 2022-02-22 04:05 | NUR ---
PT B/P DECREASING. MAP STILL >65. DECREASED VERSED TO 3MG/HR. NCREASE FENTANYL TO 50MCG/HR. WILL MONITOR.
--- NOTE | 2022-02-22 04:29 | NUR ---
RN CALLED CHAUNCEY ALBERT TO NOTIFY OF ELEVATED LAB VALUES AND URINE CHANGES. PT URINE IS EXTREMELY CLOUDY AND IS MARKEDLY DIFFERENT FROM PREVIOUS OUTPUT. VERBALLY ORDERED [facility] LAB.
[2022-02-22 04:49] LABS: CREATINE KINASE 32 U/L (26-192)
--- NOTE | 2022-02-22 05:09 | NUR ---
XRAY AT BEDSIDE
[2022-02-22] MEDS: FENTANYL-0.9 % NACL/PF 100 ML IV PRN (06:00)
--- NOTE | 2022-02-22 06:15 | NUR ---
First contact with PT; bedside report received from GABRIELLE Beebe. Pt found intubated and sedated, see eMar. Repeat PT drawn for heparin gtt, will be sent to lab. Pt appears to be resting comfortably, in no distress. Awaiting bed in ICU, will closely monitor.
[2022-02-22] MEDS: atorvastatin 10mg tablet PO SCH (07:56)
--- NOTE | 2022-02-22 09:30 | NUR ---
pt's two daughters at bedside. updated on pt status and poc. all questions answered at this time, will call for additional updates.
[2022-02-22 10:53] LABS: CLARITY,URINE CLOUDY (Clear); COLOR,URINE YELLOW (Yellow); GLUCOSE, URINE NEGATIVE (Neg); KETONES,URINE >=80 mg/dl (Neg); LEUKOCYTE ESTERASE ,URINE NEGATIVE (Neg); NITRITES, URINE NEGATIVE (Neg); OCCULT BLOOD,URINE MODERATE (Neg); PH,URINE 5.5 (4.8-8.0); PROTEIN,URINE NEGATIVE (Neg); UROBILINOGEN,URINE 0.2 E.U/dL (0.2-1.0)
[2022-02-22 10:59] LABS: UA COLLECTION TYPE FOLEY CATH
[2022-02-22 11:01] LABS: SQUAMOUS EPITHELIAL CELL,UR FEW /LPF (FEW)
[2022-02-22 11:02] LABS: MUCUS STRANDS MODERATE /LPF (Neg)
[2022-02-22 11:07] LABS: AMORPHOUS URATES 4+
[2022-02-22 11:20] LABS: BACTERIA,URINE NONE SEEN /HPF (Neg)
[2022-02-22 11:23] LABS: WBC,URINE 0-4 /HPF (0-4)
[2022-02-22 11:24] LABS: TRANSITIONAL EPI CELLS,URINE MODERATE /HPF
--- NOTE | 2022-02-22 13:28 | NUR ---
telephone report called to arnold dickey.
[2022-02-22] MEDS: HEPARIN SOD,PORK IN 0.45% NACL 250 ML IV SCH (17:05)
[2022-02-22] MEDS: heparin 10,000 units/1 ML INJ IV PRN (17:10)
--- NOTE | 2022-02-22 18:30 | NUR ---
Problems reprioritized. Patient report given, questions answered & plan of care reviewed with GABRIELLE Finch.
--- NOTE | 2022-02-22 19:50 | NUR ---
RN Note -MD Communication Dr. Cisse at bedside. Orders received.
[2022-02-22] MEDS: clopidogrel 75mg tablet PO SCH (20:38)
[2022-02-22] MEDS: methylPREDNISolone sod succ 125mg/2ml vial IV SCH (23:42)
[2022-02-23] VITALS (26 sets, daily range): BP systolic 114–156; BP diastolic 44–75
[2022-02-23 03:59] LABS: ABG BASE EXCESS -4.4 mmol/L (-2.0-2.0); ABG HCO3 20.8 mmol/L (22.0-26.0); ABG OXYGEN SATURATION 95.2 % (94-97); ABG PO2 (T) 77.7 mmHg (75.0-100.0); ALLEN'S TEST Modified; FCOHb 0.3 % (0.0-3.9); FMetHb 0.2 % (0.0-1.5); FO2Hb 94.7 % (94-97); PATIENT TEMPERATURE 37.1; PEEP 5 cm H2O; RESPIRATORY RATE 14 b/min; TIDAL VOLUME 350 mL
[2022-02-23] MEDS: normal saline 1000ml 1,000 ML IV SCH ×2 (05:15→19:10)
[2022-02-23] MEDS: FENTANYL-0.9 % NACL/PF 100 ML IV PRN (05:15)
--- NOTE | 2022-02-23 06:30 | NUR ---
Patient in room CICU 2014. I have received report from GABRIELLE Santos and had the opportunity to ask questions and assume patient care.
[2022-02-23 06:58] LABS: BASOPHILS % (AUTO) 0.2 % (0-1); EOSINOPHILS % (AUTO) 0.1 % (0-6); HEMOGLOBIN 12.4 g/dl (12.0-16.0); LYMPHOCYTES # (AUTO) 0.5 X10'3 (1.1-4.8); LYMPHOCYTES % (AUTO) 5.4 % (21-51); MEAN CORPUSCULAR HEMOGLOBIN 32.8 PG (27.0-31.0); MEAN CORPUSCULAR HGB CONC 34.5 g/dL (33.0-36.5); MEAN CORPUSCULAR VOLUME 95.1 FL (78-98); MEAN PLATELET VOLUME 7.8 FL (7.4-10.4); MONOCYTES # (AUTO) 0.1 X10'3 (0-0.9); MONOCYTES % (AUTO) 1.4 % (2-12); NEUTROPHILS # (AUTO) 8.6 X10'3 (1.8-7.7); NEUTROPHILS % (AUTO) 92.9 % (42-75); PLATELET COUNT 146 X10'3 (140-440); RED BLOOD COUNT 3.79 X10'6 (4.20-5.60); RED CELL DISTRIBUTION WIDTH 12.1 % (11.5-14.5); WHITE BLOOD COUNT 9.3 X10'3 (4.5-11.0)
[2022-02-23] MEDS: HEPARIN SOD,PORK IN 0.45% NACL 250 ML IV SCH (07:14)
[2022-02-23] MEDS: aspirin 325mg tablet PO SCH (07:35)
[2022-02-23] MEDS: methylPREDNISolone sod succ 125mg/2ml vial IV SCH ×2 (07:35→16:16)
[2022-02-23] MEDS: clopidogrel 75mg tablet PO SCH (07:36)
[2022-02-23] MEDS: pantoprazole 40mg Tablet.DR PO SCH (07:36)
[2022-02-23] MEDS: atorvastatin 10mg tablet PO SCH (07:37)
[2022-02-23 07:59] LABS: ALANINE AMINOTRANSFERASE 20 U/L (12-78); ALBUMIN 2.9 G/DL (3.4-5.0); ALBUMIN/GLOBULIN RATIO 0.9 (1.1-1.5); ALKALINE PHOSPHATASE 47 IU/L (46-116); ANION GAP 13 (8-16); ASPARTATE AMINO TRANSFERASE 19 U/L (10-37); BILIRUBIN,TOTAL 0.4 MG/DL (0.1-1.0); BLOOD UREA NITROGEN 21 MG/DL (7-18); BUN/CREATININE RATIO 37.5 (6.6-38.0); CALCIUM 7.4 MG/DL (8.5-10.1); CHLORIDE 107 MMOL/L (99-107); CREATININE 0.56 MG/DL (0.40-0.90); GLUCOSE 98 MG/DL (70-104); POTASSIUM 4.1 MMOL/L (3.5-5.1); SODIUM 139 MMOL/L (135-145); TOTAL CARBON DIOXIDE 18.6 MMOL/L (24-32); TOTAL PROTEIN 6.2 G/DL (6.4-8.2); eGFR > 90 ML/MIN
[2022-02-23 08:50] LABS: MAGNESIUM 2.3 MG/DL (1.5-2.4); PHOSPHORUS 3.1 MG/DL (2.3-4.5)
--- NOTE | 2022-02-23 08:53 | NUR ---
Family Daughter to see. Explained sedation was minimal, pt breathing on her own and Troponin's are trending down - all good signs. Likely to extubated after rounds. EKG pending. Pt indicates she's comfortable right now.
--- NOTE | 2022-02-23 11:21 | NUR ---
TF consult: Per MD at critical care rounds TF not to be initiated at this time d/t extubation. Per RN patient's family reports pt with no issues swallowing. Recommend advancing to regular diet as medically indicated. Will continue to follow. Addendum: 02/23/22 at [address] Amended: Links added.
--- NOTE | 2022-02-23 11:24 | NUR ---
Extubation Pt was extubated at 1100 to room air. 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 Asked for water 30 min post extubation. Communicating with both daughters at bedside. Concern for grand son & pets addressed by daughters. DP meeting with daughter regarding discharge plan.
--- NOTE | 2022-02-23 17:00 | NUR ---
Called and gave telephone report to tele nurse GABRIELLE Smith.
--- NOTE | 2022-02-23 17:30 | NUR ---
Pt was transferred to tele room . Pt walked standby assist on tele monitor and room air. Pt transferred with all belongings (flip flops, bra, shirt), which were then placed in her tele room's cabinet. Pt was assisted to bed locked and low position, handed call light, and side rails up x3. Tele nurse Sarah at bedside.
--- NOTE | 2022-02-23 17:49 | NUR ---
Pt. tucked in with call light in reach. Dinner provided. Chart given to desk. Pt. has no needs at this time eating dinner happily.
--- NOTE | 2022-02-23 17:49 | NUR ---
Preceptor Note: I have reviewed documentation by Julieta Marquez RN and agree with it as noted.
--- NOTE | 2022-02-23 18:49 | NUR ---
Report given to Nickolas ANTHONY.
[2022-02-23] MEDS: albuterol 2.5 MG/3 ML nebule NEB SCH (19:52)
[2022-02-23] MEDS: heparin 10,000 units/1 ML INJ IV PRN (22:55)
[2022-02-24 02:00] VITALS: BP 119/54
--- NOTE | 2022-02-24 03:45 | NUR ---
Patient c/o sob, paged RT.
--- NOTE | 2022-02-24 03:50 | NUR ---
Patient c/o headache, called Dr. Damon for prn Tylenol. Orders received.
[2022-02-24] MEDS ORDERED: acetaminophen 325mg tablet PO PRN (03:55)
[2022-02-24] MEDS ORDERED: ipratropium/albuterol 3ml nebule NEB PRN (04:10)
[2022-02-24 06:00] VITALS: BP 133/66
[2022-02-24 06:24] LABS: ALANINE AMINOTRANSFERASE 22 U/L (12-78); ALBUMIN 2.9 G/DL (3.4-5.0); ALBUMIN/GLOBULIN RATIO 0.9 (1.1-1.5); ALKALINE PHOSPHATASE 47 IU/L (46-116); ANION GAP 11 (8-16); ASPARTATE AMINO TRANSFERASE 12 U/L (10-37); BILIRUBIN,TOTAL 0.2 MG/DL (0.1-1.0); BLOOD UREA NITROGEN 23 MG/DL (7-18); BUN/CREATININE RATIO 28.8 (6.6-38.0); CALCIUM 7.7 MG/DL (8.5-10.1); CHLORIDE 108 MMOL/L (99-107); GLUCOSE 155 MG/DL (70-104); POTASSIUM 3.5 MMOL/L (3.5-5.1); SODIUM 142 MMOL/L (135-145); TOTAL CARBON DIOXIDE 22.6 MMOL/L (24-32); TOTAL PROTEIN 6.2 G/DL (6.4-8.2); eGFR 69 ML/MIN
[2022-02-24 06:27] LABS: BASOPHILS % (AUTO) 0 % (0-1); EOSINOPHILS % (AUTO) 0 % (0-6); HEMATOCRIT 35.5 % (35.0-45.0); HEMOGLOBIN 12.2 g/dl (12.0-16.0); LYMPHOCYTES # (AUTO) 0.7 X10'3 (1.1-4.8); MEAN CORPUSCULAR HEMOGLOBIN 32.5 PG (27.0-31.0); MEAN CORPUSCULAR HGB CONC 34.5 g/dL (33.0-36.5); MEAN CORPUSCULAR VOLUME 94.3 FL (78-98); MEAN PLATELET VOLUME 8.5 FL (7.4-10.4); MONOCYTES # (AUTO) 0.9 X10'3 (0-0.9); MONOCYTES % (AUTO) 7.9 % (2-12); NEUTROPHILS # (AUTO) 9.7 X10'3 (1.8-7.7); NEUTROPHILS % (AUTO) 86.1 % (42-75); PLATELET COUNT 174 X10'3 (140-440); RED BLOOD COUNT 3.76 X10'6 (4.20-5.60); RED CELL DISTRIBUTION WIDTH 12.3 % (11.5-14.5); WHITE BLOOD COUNT 11.2 X10'3 (4.5-11.0)
[2022-02-24] MEDS: albuterol 2.5 MG/3 ML nebule NEB SCH (07:34)
[2022-02-24] MEDS ORDERED: methylPREDNISolone sod succ 125mg/2ml vial IV SCH (08:00)
[2022-02-24] MEDS ORDERED: diphenhydrAMINE 25mg capsule PO ONE (08:25)
[2022-02-24] MEDS: aspirin 325mg tablet PO SCH (08:34)
[2022-02-24] MEDS: clopidogrel 75mg tablet PO SCH (08:34)
[2022-02-24] MEDS: pantoprazole 40mg Tablet.DR PO SCH (08:34)
[2022-02-24] MEDS: atorvastatin 10mg tablet PO SCH (08:34)
[2022-02-24 11:00] VITALS: BP 136/60
[2022-02-24] MEDS ORDERED: PRED10TA23 PO (13:17)
--- NOTE | 2022-02-24 15:35 | NUR ---
Pt discharged per MD orders. Educated patient and family on medications, activitiy, follow up appointments. Verbalized understanding and had no further questions. PIVx2 removed, tele box returned to quality assurance monitor body, all personal belonging sent with patient. Pt stated she did not want to wait for walker will purchase on her own.
== END 2022-02-24 15:37 | disposition home health service (06) | DRG 208 ==
LOC: ER 11:57 → ED HOLD 15:22 → CICU 2S 02-22 14:10 → PCU 3S 02-23 17:24
PROVIDERS: ADMIT Hospitalist; ATTEND Hospitalist
PROC: 5A1945Z Respiratory Ventilation, 24-96 Consecutive Hours (ICD-10-PCS; principal; 2022-02-21)
PROC: 0BH17EZ Insertion of Endotracheal Airway into Trachea, Via Natural or Artificial Opening (ICD-10-PCS; 2022-02-21)
PROC: 5A09357 Assistance with Respiratory Ventilation, Less than 24 Consecutive Hours, Continuous Positive Airway Pressure (ICD-10-PCS; 2022-02-21)
DX: J96.01 Acute respiratory failure with hypoxia (principal); I21.4 Non-ST elevation (NSTEMI) myocardial infarction; J44.1 Chronic obstructive pulmonary disease with (acute) exacerbation; E87.2 Acidosis; J96.02 Acute respiratory failure with hypercapnia; D64.9 Anemia, unspecified; G89.29 Other chronic pain; M19.90 Unspecified osteoarthritis, unspecified site; M54.9 Dorsalgia, unspecified; Z20.822 Contact with and (suspected) exposure to COVID-19; M54.2 Cervicalgia; D69.6 Thrombocytopenia, unspecified; I11.0 Hypertensive heart disease with heart failure; I50.9 Heart failure, unspecified; Z79.899 Other long term (current) drug therapy; Z82.49 Family history of ischemic heart disease and other diseases of the circulatory system; Z82.5 Family history of asthma and other chronic lower respiratory diseases; Z90.710 Acquired absence of both cervix and uterus; Z88.2 Allergy status to sulfonamides; Z88.8 Allergy status to other drugs, medicaments and biological substances; Z90.49 Acquired absence of other specified parts of digestive tract
CPT/HCPCS: 36415; 36600; 71045; 80053; 81001; 82550; 82803; 82948; 83735; 83880; 84100; 84145; 84484; 85018; 85025; 85610; 85730; 87070; 87081; 87811; 93005; 93306; 94002; 94003; 94640; 94760; 96374; 97116; 97162; 97530; 99284; 99291; 99292; A4615; A6449; A7015; C1758; G0378; J0171; J1200; J1644; J2930; J3010; J3475; J3490; J7030; J7120; P9045

== ENCOUNTER 2022-11-01 08:53 | Emergency (ER) | payer MEDICARE, OTHER ==
[~2022-11-01] VITALS: Ht 162.6 cm; Wt 60.0 kg
[~2022-11-01 08:53] MED LIST changes: -ALBU18HF2 IH; +ALBU8.5H17 IH; -BENZ-69 PO; -BUDE10.2 INH; -CEFD300C3 PO; -CYCL-1 PO; -ESTR1TAB19 PO; -FLUT1DIS4 INH; +IPRA3AMP9 NEB; +LEVO-65 PO; -PROG100C11 PO; -TAM75C PO
[2022-11-01 09:17] VITALS: BP 144/57
[2022-11-02] MEDS ORDERED: DEC4T PO (18:15)
[2022-11-02] MEDS ORDERED: AZIT-31 PO (18:17)
== END 2022-11-01 13:54 | disposition left against medical advice (07) ==
LOC: ER 08:53
DX: Z76.0 Encounter for issue of repeat prescription (principal); Z20.822 Contact with and (suspected) exposure to COVID-19
CPT/HCPCS: 99281

== ENCOUNTER 2022-11-02 17:57 | Emergency (ER) | payer MEDICARE, OTHER ==
[~2022-11-02] VITALS: Ht 167.6 cm; Wt 54.5 kg
[2022-11-02] MEDS ORDERED: dexamethasone 4mg tablet PO ONE (18:15)
[2022-11-02] MEDS ORDERED: ipratropium/albuterol 3ml nebule NEB ONE (18:15)
[2022-11-02] MEDS ORDERED: DEC4T PO (18:15)
[2022-11-02] MEDS ORDERED: AZIT-31 PO (18:17)
[2022-11-02 18:21] LABS: BASOPHILS # (AUTO) 0.1 X10'3 (0-0.2); BASOPHILS % (AUTO) 0.8 % (0-1); EOSINOPHILS # (AUTO) 0.7 X10'3 (0-0.9); EOSINOPHILS % (AUTO) 8.8 % (0-6); HEMATOCRIT 43.3 % (35.0-45.0); HEMOGLOBIN 14.5 g/dl (12.0-16.0); LYMPHOCYTES # (AUTO) 2.2 X10'3 (1.1-4.8); LYMPHOCYTES % (AUTO) 29.8 % (21-51); MEAN CORPUSCULAR HEMOGLOBIN 32.7 PG (27.0-31.0); MEAN CORPUSCULAR HGB CONC 33.5 g/dL (33.0-36.5); MEAN CORPUSCULAR VOLUME 97.5 FL (78-98); MEAN PLATELET VOLUME 7.8 FL (7.4-10.4); MONOCYTES # (AUTO) 1.1 X10'3 (0-0.9); MONOCYTES % (AUTO) 14.4 % (2-12); NEUTROPHILS # (AUTO) 3.4 X10'3 (1.8-7.7); NEUTROPHILS % (AUTO) 46.2 % (42-75); PLATELET COUNT 239 X10'3 (140-440); RED BLOOD COUNT 4.44 X10'6 (4.20-5.60); RED CELL DISTRIBUTION WIDTH 12.5 % (11.5-14.5); WHITE BLOOD COUNT 7.4 X10'3 (4.5-11.0)
[2022-11-02 18:31] LABS: ALANINE AMINOTRANSFERASE 19 U/L (12-78); ALBUMIN 3.9 G/DL (3.4-5.0); ALBUMIN/GLOBULIN RATIO 1.1 (1.1-1.5); ALKALINE PHOSPHATASE 61 IU/L (46-116); ANION GAP 7 (8-16); ASPARTATE AMINO TRANSFERASE 16 U/L (10-37); BILIRUBIN,TOTAL 0.3 MG/DL (0.1-1.0); BLOOD UREA NITROGEN 22 MG/DL (7-18); BUN/CREATININE RATIO 26.8 (10.0-20.0); CALCIUM 9.4 MG/DL (8.5-10.1); CHLORIDE 103 MMOL/L (99-107); CREATININE 0.82 MG/DL (0.40-0.90); GLUCOSE 108 MG/DL (70-104); POTASSIUM 4.3 MMOL/L (3.5-5.1); SODIUM 138 MMOL/L (135-145); TOTAL CARBON DIOXIDE 28.1 MMOL/L (24-32); TOTAL PROTEIN 7.3 G/DL (6.4-8.2); eGFR 67 ML/MIN
[2022-11-02 18:39] LABS: MAGNESIUM 2.1 MG/DL (1.5-2.4)
[2022-11-02 19:11] VITALS: BP 133/65
== END 2022-11-02 19:12 | disposition home or self-care (01) ==
LOC: ER 17:58
DX: J45.901 Unspecified asthma with (acute) exacerbation (principal); G89.29 Other chronic pain; M54.9 Dorsalgia, unspecified; Z90.49 Acquired absence of other specified parts of digestive tract; Z88.2 Allergy status to sulfonamides; Z88.1 Allergy status to other antibiotic agents; Z79.899 Other long term (current) drug therapy; Z79.1 Long term (current) use of non-steroidal anti-inflammatories (NSAID); Z79.2 Long term (current) use of antibiotics
CPT/HCPCS: 36415; 80053; 83735; 83880; 84484; 85025; 94640; 94760; 99284

== ENCOUNTER 2023-04-20 21:08 | Emergency (ER) | payer MEDICARE, OTHER ==
[~2023-04-20] VITALS: Ht 160 cm; Wt 57.4 kg
[2023-04-20 21:12] VITALS: BP 137/68; PULSE 83; RESP 18; TEMP 97.3; O2SAT 96
== END 2023-04-20 23:22 | disposition home or self-care (01) ==
LOC: ER 21:09
DX: R11.2 Nausea with vomiting, unspecified (principal); Z20.822 Contact with and (suspected) exposure to COVID-19; Z88.2 Allergy status to sulfonamides; Z88.1 Allergy status to other antibiotic agents; Z79.899 Other long term (current) drug therapy; J44.9 Chronic obstructive pulmonary disease, unspecified; Z90.49 Acquired absence of other specified parts of digestive tract; Z90.710 Acquired absence of both cervix and uterus
CPT/HCPCS: 36415; 87811; 99283

== ENCOUNTER 2023-09-03 18:35 | Emergency (ER) | payer MEDICARE ==
[~2023-09-03] VITALS: Ht 160 cm; Wt 60.6 kg
[~2023-09-03 18:35] MED LIST changes: +BUDE0.5A11 NEB; +FORM20VI4 IH; -IPRA3AMP9 NEB; -LEVO-65 PO
[2023-09-03 18:36] VITALS: BP 122/51; PULSE 94; RESP 16; TEMP 97.7; O2SAT 95
[2023-09-03] MEDS ORDERED: CELE-193 PO (21:07)
[2023-09-03] MEDS: celeCOXIB 100mg capsule PO SCH (21:14)
== END 2023-09-03 21:21 | disposition home or self-care (01) ==
LOC: ER 18:35
DX: S29.012A Strain of muscle and tendon of back wall of thorax, initial encounter (principal); X58.XXXA Exposure to other specified factors, initial encounter; Y93.89 Activity, other specified; Y92.89 Other specified places as the place of occurrence of the external cause; Y99.8 Other external cause status; J44.9 Chronic obstructive pulmonary disease, unspecified; K21.9 Gastro-esophageal reflux disease without esophagitis; G89.29 Other chronic pain; M54.9 Dorsalgia, unspecified; Z88.2 Allergy status to sulfonamides; Z88.1 Allergy status to other antibiotic agents; Z79.899 Other long term (current) drug therapy
CPT/HCPCS: 99283

== ENCOUNTER 2024-01-08 13:04 | Emergency (ER) | payer MEDICARE ==
[~2024-01-08] VITALS: Ht 157.5 cm; Wt 54.0 kg
[2024-01-08 13:47] LABS: BASOPHILS % (AUTO) 0.5 % (0-1); EOSINOPHILS % (AUTO) 0.2 % (0-6); HEMATOCRIT 44.2 % (35.0-45.0); HEMOGLOBIN 15.1 g/dl (12.0-16.0); LYMPHOCYTES # (AUTO) 1.8 X10'3 (1.1-4.8); LYMPHOCYTES % (AUTO) 27.5 % (21-51); MEAN CORPUSCULAR HEMOGLOBIN 32.2 PG (27.0-31.0); MEAN CORPUSCULAR HGB CONC 34.1 g/dL (33.0-36.5); MEAN CORPUSCULAR VOLUME 94.7 FL (78-98); MEAN PLATELET VOLUME 8.1 FL (7.4-10.4); MONOCYTES # (AUTO) 0.7 X10'3 (0-0.9); MONOCYTES % (AUTO) 11.6 % (2-12); NEUTROPHILS # (AUTO) 3.9 X10'3 (1.8-7.7); NEUTROPHILS % (AUTO) 60.2 % (42-75); PLATELET COUNT 205 X10'3 (140-440); RED BLOOD COUNT 4.67 X10'6 (4.20-5.60); WHITE BLOOD COUNT 6.4 X10'3 (4.5-11.0)
[2024-01-08 14:07] LABS: ALBUMIN 3.8 G/DL (3.4-5.0); ANION GAP 10 (8-16); BLOOD UREA NITROGEN 18 MG/DL (7-18); BUN/CREATININE RATIO 20.7 (10.0-20.0); CALCIUM 9.6 MG/DL (8.5-10.1); CHLORIDE 101 MMOL/L (99-107); CREATININE 0.87 MG/DL (0.40-0.90); GLUCOSE 154 MG/DL (70-104); POTASSIUM 3.6 MMOL/L (3.5-5.1); PRO BRAIN NATRIURETIC PEPTIDE 128 PG/ML (0-450); SODIUM 139 MMOL/L (135-145); TOTAL CARBON DIOXIDE 28.2 MMOL/L (24-32); eCRCL 39 ML/MIN; eGFR 62 ML/MIN
[2024-01-08 16:36] VITALS: BP 125/85; PULSE 73; RESP 16; TEMP 98.5; O2SAT 96
== END 2024-01-08 16:34 | disposition home or self-care (01) ==
LOC: ER 13:04
DX: R07.89 Other chest pain (principal); I10 Essential (primary) hypertension; J44.9 Chronic obstructive pulmonary disease, unspecified; K21.9 Gastro-esophageal reflux disease without esophagitis; M19.90 Unspecified osteoarthritis, unspecified site; Z88.2 Allergy status to sulfonamides; Z88.1 Allergy status to other antibiotic agents; Z79.899 Other long term (current) drug therapy; Z90.49 Acquired absence of other specified parts of digestive tract; Z90.710 Acquired absence of both cervix and uterus
CPT/HCPCS: 36415; 71045; 80048; 83880; 84484; 85025; 93005; 99285

== ENCOUNTER 2024-03-28 10:39 | Emergency (ER) | payer MEDICARE ==
[~2024-03-28] VITALS: Ht 160 cm; Wt 57.5 kg
[2024-03-28 11:41] LABS: BASOPHILS % (AUTO) 0.3 % (0-1); EOSINOPHILS % (AUTO) 0 % (0-6); HEMATOCRIT 45.3 % (35.0-45.0); HEMOGLOBIN 15.2 g/dl (12.0-16.0); LYMPHOCYTES # (AUTO) 1.2 X10'3 (1.1-4.8); LYMPHOCYTES % (AUTO) 17.4 % (21-51); MEAN CORPUSCULAR HGB CONC 33.6 g/dL (33.0-36.5); MEAN CORPUSCULAR VOLUME 95.2 FL (78-98); MEAN PLATELET VOLUME 8.4 FL (7.4-10.4); MONOCYTES # (AUTO) 1.2 X10'3 (0-0.9); MONOCYTES % (AUTO) 17.8 % (2-12); NEUTROPHILS # (AUTO) 4.4 X10'3 (1.8-7.7); NEUTROPHILS % (AUTO) 64.5 % (42-75); PLATELET COUNT 184 X10'3 (140-440); RED BLOOD COUNT 4.77 X10'6 (4.20-5.60); RED CELL DISTRIBUTION WIDTH 12.7 % (11.5-14.5); WHITE BLOOD COUNT 6.9 X10'3 (4.5-11.0)
[2024-03-28 11:54] LABS: ALANINE AMINOTRANSFERASE 15 U/L (12-78); ALBUMIN 3.7 G/DL (3.4-5.0); ALKALINE PHOSPHATASE 66 IU/L (46-116); ANION GAP 12 (8-16); ASPARTATE AMINO TRANSFERASE 20 U/L (10-37); BILIRUBIN,TOTAL 0.5 MG/DL (0.1-1.0); BLOOD UREA NITROGEN 15 MG/DL (7-18); BUN/CREATININE RATIO 16.3 (10.0-20.0); CALCIUM 8.9 MG/DL (8.5-10.1); CHLORIDE 97 MMOL/L (99-107); CREATININE 0.92 MG/DL (0.40-0.90); GLUCOSE 104 MG/DL (70-104); POTASSIUM 3.8 MMOL/L (3.5-5.1); SODIUM 134 MMOL/L (135-145); TOTAL CARBON DIOXIDE 25.4 MMOL/L (24-32); TOTAL PROTEIN 7.5 G/DL (6.4-8.2); eCRCL 38 ML/MIN; eGFR 58 ML/MIN
[2024-03-28 12:03] LABS: PRO BRAIN NATRIURETIC PEPTIDE 214 PG/ML (0-450)
[2024-03-28] MEDS: loperamide 2mg capsule PO ONE (12:28)
[2024-03-28 12:45] VITALS: TEMP 98.3
[2024-03-28 14:31] VITALS: BP 117/58; PULSE 92; RESP 16; O2SAT 93
== END 2024-03-28 14:30 | disposition home or self-care (01) ==
LOC: ER 10:40
DX: R07.89 Other chest pain (principal); I10 Essential (primary) hypertension; J44.9 Chronic obstructive pulmonary disease, unspecified; R19.7 Diarrhea, unspecified; R50.9 Fever, unspecified; Z88.2 Allergy status to sulfonamides; Z88.1 Allergy status to other antibiotic agents; Z79.899 Other long term (current) drug therapy; Z98.890 Other specified postprocedural states; Z90.49 Acquired absence of other specified parts of digestive tract; Z90.710 Acquired absence of both cervix and uterus
CPT/HCPCS: 36415; 80053; 83880; 84484; 85025; 93005; 99284

== ENCOUNTER 2024-10-27 07:33 | Emergency (ER) | payer MEDICARE ==
[~2024-10-27] VITALS: Ht 160 cm; Wt 58.2 kg
[2024-10-27 07:36] VITALS: TEMP 98.9
[2024-10-27 08:20] LABS: BASOPHILS # (AUTO) 0.1 X10'3 (0-0.2); BASOPHILS % (AUTO) 0.4 % (0-1); EOSINOPHILS # (AUTO) 0.3 X10'3 (0-0.9); EOSINOPHILS % (AUTO) 2.5 % (0-6); HEMATOCRIT 44.7 % (35.0-45.0); HEMOGLOBIN 14.7 g/dl (12.0-16.0); LYMPHOCYTES # (AUTO) 2.6 X10'3 (1.1-4.8); LYMPHOCYTES % (AUTO) 21.5 % (21-51); MEAN CORPUSCULAR HGB CONC 32.9 g/dL (33.0-36.5); MEAN PLATELET VOLUME 7.6 FL (7.4-10.4); MONOCYTES # (AUTO) 1.3 X10'3 (0-0.9); MONOCYTES % (AUTO) 11.1 % (2-12); NEUTROPHILS # (AUTO) 7.7 X10'3 (1.8-7.7); NEUTROPHILS % (AUTO) 64.5 % (42-75); PLATELET COUNT 284 X10'3 (140-440); RED BLOOD COUNT 4.75 X10'6 (4.20-5.60); RED CELL DISTRIBUTION WIDTH 13.4 % (11.5-14.5)
[2024-10-27 08:33] LABS: ALANINE AMINOTRANSFERASE 21 U/L (12-78); ALBUMIN 3.3 G/DL (3.4-5.0); ALBUMIN/GLOBULIN RATIO 0.9 (1.1-1.5); ALKALINE PHOSPHATASE 82 IU/L (46-116); ANION GAP 6 (8-16); ASPARTATE AMINO TRANSFERASE 17 U/L (10-37); BILIRUBIN,TOTAL 0.9 MG/DL (0.1-1.0); BLOOD UREA NITROGEN 15 MG/DL (7-18); BUN/CREATININE RATIO 16.7 (10.0-20.0); CALCIUM 9.1 MG/DL (8.5-10.1); CHLORIDE 102 MMOL/L (99-107); GLUCOSE 112 MG/DL (70-104); SODIUM 138 MMOL/L (135-145); TOTAL PROTEIN 7.1 G/DL (6.4-8.2); eCRCL 38 ML/MIN; eGFR 60 ML/MIN
[2024-10-27 08:39] LABS: PRO BRAIN NATRIURETIC PEPTIDE 44 PG/ML (0-450)
[2024-10-27] MEDS: ipratropium/albuterol 3ml nebule NEB ONE (08:54)
[2024-10-27 08:57] VITALS: PULSE 83; RESP 18; O2SAT 93
[2024-10-27 09:04] VITALS: PULSE 92; RESP 18; O2SAT 92
[2024-10-27] MEDS: azithromycin 250mg tablet PO ONE (09:32)
[2024-10-27] MEDS: predniSONE 20 mg tablet PO ONE (09:32)
[2024-10-27] MEDS ORDERED: PRED50TA PO (09:54)
[2024-10-27] MEDS ORDERED: AZIT-164 PO (09:54)
[2024-10-27 11:09] VITALS: BP 134/69; PULSE 80; RESP 16; O2SAT 95
== END 2024-10-27 11:13 | disposition home or self-care (01) ==
LOC: ER 07:34
DX: J20.9 Acute bronchitis, unspecified (principal); J44.9 Chronic obstructive pulmonary disease, unspecified; I11.9 Hypertensive heart disease without heart failure; I25.10 Atherosclerotic heart disease of native coronary artery without angina pectoris; M19.90 Unspecified osteoarthritis, unspecified site; Z88.2 Allergy status to sulfonamides; Z90.49 Acquired absence of other specified parts of digestive tract; Z90.710 Acquired absence of both cervix and uterus
CPT/HCPCS: 36415; 71045; 80053; 83880; 84484; 85025; 87040; 93005; 94640; 99285; J7512; Z7610; 94760

== ENCOUNTER 2024-11-28 08:35 | Emergency (ER) | payer MEDICARE ==
[~2024-11-28] VITALS: Ht 160 cm; Wt 60.3 kg
[~2024-11-28 08:35] MED LIST changes: +PRED50TA PO
[2024-11-28 08:37] VITALS: BP 165/66; PULSE 83; RESP 16; O2SAT 95
[2024-11-28] MEDS: TETanus/Pertussis (Acell)/Diphther VAC/PF (Tdap-Adult) 0.5ml syringe IMVAC ONE (09:33)
--- NOTE | 2024-11-28 09:46 | Physician Documentation ---
History of Present Illness ~ Chief Complaint: Wound Stated Complaint: HAND LAC Time Seen by MD: 09:04 OK to notify your PCP?: Yes Primary Medical Doctor: Rocio Shell Source: patient Mode of Arrival: POV Exam Limitations: no limitations HPI 84-year-old right-handed female with complaint of laceration to her dorsal surface of her right hand that occurred just prior to arrival. She states she was working her green house and hit her hand on a pot that had broken. She states her last tetanus was over 10 years ago and she states I am really here just for a tetanus immunization. Pre arrival treatment with irrigation to the wound. Denies any other concerns or complaints. States she can still move her fingers and wrist normally. Medication Reconciliation Allergies: Coded Allergies: Sulfa (Sulfonamide Antibiotics) (Verified Allergy, Severe, 10/27/24) Tetracyclines (Verified Allergy, Unknown, 10/27/24) Scheduled Budesonide Neb* (Pulmicort Neb*), 1 VIAL NEB Q12H, (Reported) Calcium Citrate/Vitamin D3 (Citracal + D Maximum Caplet), 1 TAB PO BID, (Reported) Cyanocobalamin (Vitamin B-12) (Vitamin B-12), 1,000 MG PO DAILY, (Reported) Formoterol Fumarate (Formoterol Fumarate), 1 VIAL IH Q12H, (Reported) Ridgeway-3 Fatty Acids/Fish Oil (Ridgeway 3 1,000 mg Softgel), 1 CAP PO DAILY, (Reported) Prednisone (Prednisone), 1 TAB PO DAILY Prednisone (Prednisone), 1 TAB PO DAILY Scheduled PRN Albuterol Sulfate (Proair Hfa), 2 PUFFS IH Q6H PRN for SOB or wheezing, (Reported) Past Medical History Past Medical History: Allergic Rhinitis, *CARDIOVASCULAR*, Hypertension, Asthma, COPD, Previously Intubated, GERD, Arthritis, Chronic Back Pain Past Surgical History: appendectomy, cholecystectomy, hysterectomy, other Patient History: (CAD) Coronary arteriosclerosis (COPD) Chronic obstructive lung disease MOTHER, Onset:60 years & older Asthma MOTHER, Onset:Childhood FH: HTN (hypertension) sister, Onset:50's - 60 FH: coronary artery disease Maternal grandmother Maternal grandfather No Family History of: (CABG) Coronary artery bypass grafting (CHF) Congestive heart failure (CVA) Cerebrovascular accident (Cancer) Malignant carcinoid tumor (DM Type 2) Diabetes mellitus type 2 (DM Type1) Diabetes mellitus type 1 (ID) Myocardial infarction (PVD) Peripheral vascular disease (TIA) Transient ischemic attack Alzheimer's disease Aortic aneurysm Cardiac arrest Hypercholesterolemia Alcohol Use: None Drug Use: none Lives with: Family Lives In: Home Occupation: retired Review of Systems All Other Systems at this time: Reviewed and Negative Physical Exam Vital Signs: Temperature: 98.0, Source: Temporal, Heart Rate: 83, Respiratory Rate: 16, BP: 165/66, Pulse Oximetry: 95, Weight: 60.300 Oxygen Flow Rate: 0 Physical Exam General Appearance: Alert, WD/WN. NAD. HEENT: NCAT, PERRL, EOMI. Neck: Supple, trachea midline. Cardiovascular: RRR. No m/r/g. Lungs: CTAB. Breathing unlabored Extremities: Normal inspection. No edema. Skin: Right dorsal surface of hand there is a skin tear measuring about 2 cm in width by 2 cm in length skin is folded up underneath itself underlying dermis visible Neurological: Alert and oriented x4, normal gait. Psychiatric: Affect congruent with mood. Progress Progress Note Wound was irrigated with sterile saline and I used forceps to pull the pieces of the skin back over the wound and I then used Dermabond to glue edges of skin tear down. Results/Orders Reviewed/noted all lab results: Yes Results/Orders Orders - PHI TREJO Dermabond To Bedside (11/28/24 ) Completed Orders - PHI TREJO Tetanus/Pertuss/Diph Acell/Pf (Boostrix (11/28/24 09:25) Medications Received in ER Medications (Trade) Dose Ordered Sig/Charity Route PRN Reason Start Time Stop Time Status Last Admin Dose Admin (Boostrix vaccine syringe) 0.5 ml ONCE ONCE IMVAC 11/28/24 09:25 11/28/24 09:26 DC 11/28/24 09:33 0.5 ML Vital Signs 11/28/24 11/28/24 08:37 09:52 Temp 98.0 98.0 Pulse 83 Resp 16 B/P (MAP) 165/66 Pulse Ox 95 O2 Flow Rate 0 Medical Decision Making Differential Dx:Considerations: Include: Abscess, AIDS/HIV, Anthrax (cutaneous ), Atopic dermatitis, Candidiasis, Contact dermatitis, Drug reaction, Erythema multiforme, Erysipelas, Gangrene, Herpes zoster, Herpes simplex, Hidradenitis suppurativa, Impetigo, Intertrigo, Lymes disease, Molluscum contagiosum, Osteomyelitis, Pediculosis, Pityriasis rosea, Psoriaisis, RMSF, Rosacea, Scabies, Scarlet fever, Tinea, Urticaria, Varicella, Viral exanthema, Other Additional Comment Skin tear over superficial I am not concerned about underlying fracture no foreign bodies visualized upon irrigation and when re approximating margins Departure Time of Disposition: 09:46 Disposition: 01 HOME / SELF CARE / HOMELESS Impression: Primary Impression: Skin tear Additional Impression: Immunization due Condition: Stable Discharge Instructions: Skin Tear, [id number] Additional Instructions: DO NOT SUBMERGE UNDER WATER FOR 72HOURS, TRY TO KEEP DRY IF GETS WET BLOW DRY OFF RATHER THAN DRY WITH TOWEL TO AVOID DISRUPTING THE SKIN IF THERE IS A THICK CRUST THAT FORMS OVER THE SKIN, YOU WANT TO GET THIS CRUST MOIST AND GENTLY GET OFF IF ANY SIGNS OR SYMPTOMS OF INFECTION RETURN TO ER WE UPDATED YOUR TETANUS IMMUNIZATION WHICH ALSO UPDATES YOUR PERTUSSIS FOR WHOOPING COUGH Referrals: NO PRIMARY CARE PROVIDER (PCP) Education Educated: Patient Educated regarding: diagnosis, treatment, need for follow up Signature Scribe Signature: X Attestation: PHI BLEDSOE November 28, 2024 09:46
[2024-11-28 09:52] VITALS: TEMP 98
== END 2024-11-28 09:58 | disposition home or self-care (01) ==
LOC: ER 08:36
DX: S61.411A Laceration without foreign body of right hand, initial encounter (principal); Z23 Encounter for immunization; I10 Essential (primary) hypertension; I25.10 Atherosclerotic heart disease of native coronary artery without angina pectoris; J44.9 Chronic obstructive pulmonary disease, unspecified; M19.90 Unspecified osteoarthritis, unspecified site; K21.9 Gastro-esophageal reflux disease without esophagitis; Z88.2 Allergy status to sulfonamides; Z88.8 Allergy status to other drugs, medicaments and biological substances; Z90.49 Acquired absence of other specified parts of digestive tract; Z90.710 Acquired absence of both cervix and uterus; X58.XXXA Exposure to other specified factors, initial encounter; Y93.89 Activity, other specified; Y92.89 Other specified places as the place of occurrence of the external cause; Y99.8 Other external cause status
CPT/HCPCS: 12001; 90715; 99283; A6258; A6449; G0008; Z7610; 90471